=== PATIENT | female | born 1950 | race Caucasian/White ===

== ENCOUNTER → 2019-08-01 10:59 | Outpatient (BNVA) | payer MEDICARE, BC, SELFPAY | PROVIDERS: Family Provider Family Medicine; PCP Family Medicine; Visit Provider Specialist | DX: G40.309 Generalized idiopathic epilepsy and epileptic syndromes, not intractable, without status epilepticus (principal) | CPT/HCPCS: 99214 ==

== ENCOUNTER → 2020-01-31 10:52 | Outpatient (BNVA) | payer MEDICARE, BC, SELFPAY | PROVIDERS: Family Provider Family Medicine; PCP Family Medicine; Visit Provider Specialist | DX: G40.309 Generalized idiopathic epilepsy and epileptic syndromes, not intractable, without status epilepticus (principal) | CPT/HCPCS: 99213 ==

== ENCOUNTER → 2020-08-21 11:08 | Outpatient (BNVA) | payer MEDICARE, BC, SELFPAY | PROVIDERS: PCP Family Medicine; Visit Provider Specialist | DX: G40.209 Localization-related (focal) (partial) symptomatic epilepsy and epileptic syndromes with complex partial seizures, not intractable, without status epilepticus (principal) | CPT/HCPCS: 99213 ==

== ENCOUNTER 2020-08-27 16:42 | Emergency (ER) | payer MEDICARE, BC, SELFPAY ==
[2020-08-27 16:59] VITALS: BP 158/87; PULSE 75; RESP 16; TEMP 36.6; O2SAT 94; BMI 25.0
[2020-08-27 20:32] VITALS: BP 154/80; PULSE 67; RESP 16; O2SAT 96
--- NOTE | 2020-08-27 20:44 | W.ED.WOUNDLC ---
HPI - Wound/Laceration General: Chief Complaint: Wound/Laceration Stated Complaint: ABSCESS ON ABDOMEN/SENT BY PCP Time Seen by Provider: 08/27/20 20:44 History of Present Illness: HPI narrative: Patient is a 70-year-old female who comes to the ED with abscess on abdomen. Patient was seen by her PCP earlier today and was sent to the ED for further evaluation. Patient says draining wound started approximately 3 days ago. The area that is now opened up and draining is an old NG feeding tube site. Patient says her G-tube was removed over a year ago and has completely healed over but there is always been a bump on her abdomen at that site. 3 days ago it started getting red and sore. In the last 24 hours the area opened up and started leaking some purulent drainage. Patient denies any fever, chills, pain at site, nausea/vomiting, bladder or bowel symptoms. Associated symptoms: Denies chills, fever(s), nausea or vomiting Review of Systems Const: Denies: fever(s), chills or fatigue Eyes: Denies: change in vision or eye discomfort ENMT: Denies: throat pain, odynophagia, nasal discharge or nasal congestion Card: Denies: chest pain, palpitations, edema, swelling of feet/ankles, dyspnea on exertion or orthopnea Resp: Denies: dyspnea, productive cough or non-productive cough GI: Denies: abdominal pain, nausea, vomiting, diarrhea, constipation or hematochezia : Denies: flank pain, dysuria or hematuria Musc: Denies: neck pain, back pain or extremity swelling Skin/Breast: Reports: new lesions (past G tube feeding site-has opened up and has purulent drainage.); Denies: rash Neuro: Denies: headache(s), numbness in extremities or weakness in extremities PFSH ED PFSH: Family History Denies family history of Diabetes CAD (coronary artery disease) Cancer Hypertension Stroke Social History Smoking and tobacco status: never smoked Alcohol intake: never History of recent travel: No Physical Exam Const: COMMON NORMALS: no acute distress, patient oriented x3 and alert GENERAL APPEARANCE: cooperative and comfortable HENMT: COMMON NORMALS: normocephalic HEAD & SCALP: normocephalic MOUTH: Normal oral and palatal mucosa present THROAT: posterior oropharynx normal and uvula midline Neck/C-Spine: COMMON NORMALS: supple GENERAL: Yes normal visual inspection Resp: COMMON NORMALS: normal respiratory effort, No retractions, No use of accessory muscles and clear to auscultation bilaterally AUSCULTATION: clear to auscultation bilaterally Cardio: COMMON NORMALS: regular rate, regular rhythm, S1 normal heart sound present, S2 normal heart sound present, No gallops present (Cardio), No clicks present (Cardio), No murmurs present (Cardio) and Peripheral pulses 2+ throughout RATE: regular rate RHYTHM: regular rhythm HEART SOUNDS: S1 normal heart sound present and S2 normal heart sound present PERIPHERAL PULSES: Peripheral pulses 2+ throughout GI: COMMON NORMALS: Normal to inspection, nondistended, normoactive bowel sounds present, Soft to palpation, non-tender and no masses INSPECTION: Yes scar (Ostomy site closed and healed over in the left lower quadrant of abdomen.) PALPATION: Yes Soft to palpation OTHER: Patient's old G tube site has opened and has purulent drainage. Erythema and warmth present as well. : COMMON NORMALS: Yes no CVA tenderness BLADDER/KIDNEY EXAM: Yes no CVA tenderness Back/Pelvis: COMMON NORMALS: no CVA tenderness Extremity: COMMON NORMALS: normal to inspection Neuro: COMMON NORMALS: patient oriented x3 and moves all extremities SENSORIUM/ORIENTATION: Yes alert Skin: GENERAL SKIN EXAM: dry skin Course Consultations: Consultation #1: Contacted Dr. Malloy told him about patient case and the CT findings. He told me to have patient referred to surgery for outpatient evaluation. Time: 22:32 Vital Signs: Vital signs: Vital Signs Temperature 97.8 F 08/27/20 16:59 Pulse Rate 59 L 08/27/20 23:10 Respiratory Rate 16 08/27/20 23:10 Blood Pressure 151/70 08/27/20 23:10 Pulse Oximetry 98 08/27/20 23:10 MDM - Wound/Laceration MDM Narrative: Medical decision making narrative: Patient is a 70-year-old female comes to the ED with opened up old G-tube site with purulent drainage. Patient had GJ tube placed approximately 2 years ago and has had the G-tube removed over a year ago. She states it has since healed over and it was not until about 3 days ago it started getting red and opened up and started draining. Exam shows some open wound with some active purulent drainage in the left upper quadrant of abdomen. There is some surrounding erythema and warmth as well. Exam findings suggestive of cellulitis. All labs normal. CT of abdomen showed fluid-filled tract between the stomach and skin which is likely from a previous gastrostomy tube. No abscess seen. I contacted Dr. Malloy and told him about patient case and CT findings. He recommended that patient will need outpatient surgery to address wound and drainage. I placed an order with case management for patient to be referred to general surgeon. Patient was given IV fluids and Rocephin while here in the ED. Patient was diagnosed with cellulitis and drainage at gastrostomy tube site. She was put on a prescription of Bactrim as well. I told patient that rn field case manager will contact you in the next several days to set up an appointment to see general surgery to get problem addressed. Return to ED precautions given. Patient understood and agreed with plan. Lab Data: Attestation: I reviewed the patient's lab results. Labs: Lab Results 08/27/20 08/27/20 Range/Units 21:05 21:05 WBC 8.9 (4.0-10.0) 10^3/ uL RBC 4.72 (4.1-5.3) 10^6/u L Hgb 14.1 (11.5-15.3) g/dL Hct 43.6 (37.0-47.0) % MCV 92.4 (81-99) fL MCH 29.9 (28.0-34.0) pg MCHC 32.3 (30.0-36.0) g/dL RDW 13.5 (12.1-15.1) % Plt Count 288 (130-400) 10^3/c mm MPV 10.5 H (7.4-10.4) fL Neut % (Auto) 65.7 % Lymph % (Auto) 22.2 % [place] % (Auto) 9.5 % Eos % (Auto) 1.6 % Baso % (Auto) 0.8 % Neut # (Auto) 5.86 (1.8-7.7) 10^3/u L Lymph # (Auto) 2.0 (0.8-4.8) 10^3/u L [place] # (Auto) 0.9 (0.2-0.9) 10^3/u L Eos # (Auto) 0.1 (0.0-0.8) 10^3/u L Baso # (Auto) 0.1 (0.0-0.1) 10^3/u L Nucleated RBC % (a uto) 0 % Nucleated RBCs # 0.0 /100WBC Sodium 140 (136-145) mmol/L Potassium 3.8 (3.5-5.1) mmol/L Chloride 101 (98-107) mmol/L Carbon Dioxide 28 (22-29) mmol/L Anion Gap 14.8 (5-19) BUN 17 (8-23) mg/dL Creatinine 0.8 (0.5-0.9) mg/dL GFR Calculation Not Reportable Glucose 96 (65-115) mg/dL Calculated Osmolal ity 291 (285-295) mOsm/k g Calcium 9.8 (8.5-10.5) mg/dL Total Bilirubin 0.3 (0.15-1.2) mg/dL AST 25 (0-32) U/L ALT 16 (0-33) U/L Alkaline Phosphata se 135 H (35-105) IU/L Total Protein 7.3 (6.6-8.7) g/dL Albumin 4.5 (3.5-5.2) g/dL Globulin 2.8 (1.3-4.6) g/dL Imaging Data^: CT Abd/Pel: Attestation: I personally reviewed and interpreted this imaging study as follows: Radiologist's impression: [address] [address] [address] Scan Report Signed Patient: Elaina Michaels AUnolivia #: [id number] : 1950Acct#:[id number] Age/Sex: 70 / FADM Date: 08/27/20 Loc: ERRoom/Bed: Attending Dr: Ordering Provider/Ordering MD: Dariel Delacruz Date of Service: 08/27/20 Procedure(s): CT abdomen pelvis w con* [id number] Accession Number(s): [id number] Report Number: [id number] PROCEDURE INFORMATION: Exam: CT Abdomen And Pelvis With Contrast Exam date and time: 08/27/2020 9:36 PM Age: 70 years old Clinical indication: Other: Draining at old feeding tube site; Prior surgery; Surgery type: Left hip, feeding tube(removed 1 yr ago); Additional info: Wound with purulent drainage on abdomen. TECHNIQUE: Imaging protocol: Computed tomography of the abdomen and pelvis with contrast. Radiation optimization: All CT scans at this facility use at least one of these dose optimization techniques: automated exposure control; mA and/or kV adjustment per patient size (includes targeted exams where dose is matched to clinical indication); or iterative reconstruction. Contrast material: VISI 320; Contrast volume: 95 ml; Contrast route: INTRAVENOUS (IV); COMPARISON: CT pelvis w con* [id number] 03/11/2018 1:33 AM, report only chest CT from 06/30/2018. RADIATION DOSE METRICS: Total DLP (mGy-cm): 1457.97 FINDINGS: Lungs: Scattered scars in the lung bases. Liver: Incidental 1.2 cm simple cyst in the left lobe of the liver. Gallbladder and bile ducts: Normal. No calcified stones. No ductal dilation. Pancreas: Normal. No ductal dilation. Spleen: Normal. No splenomegaly. Adrenal glands: Normal. No mass. Kidneys and ureters: Chronic 5.9 cm simple left renal cyst. Stomach and bowel: In the left upper quadrant there is a tract extending from the stomach to the skin surface. There is no gas in this tract but there is likely a small quantity of fluid. This may have been the site of a previously removed gastrostomy tube. There is no abscess. Patent anastomosis in the distal descending colon. Appendix: No evidence of appendicitis. Intraperitoneal space: Unremarkable. No free air. No significant fluid collection. Vasculature: Unremarkable. No abdominal aortic aneurysm. Lymph nodes: Unremarkable. No enlarged lymph nodes. Urinary bladder: Unremarkable as visualized. Reproductive: The uterus is atrophic. Bones/joints: Chronic T10 compression fracture was also reported in 2019. Multiple chronic healed left lateral rib fractures. Left hip arthroplasty. Soft tissues: Additional scar in the left mid abdominal wall. No visible fluid or inflammation in the scar. Bulge in the supraumbilical abdominal wall has a broad aperture up to 8 cm. No bowel entrapment. CT/CT abdomen pelvis w con* [id number] IMPRESSION: 1. Fluid-filled tract between the stomach and skin. This is likely the site of a previous gastrostomy tube. There is no abscess. 2. Other chronic and incidental findings as described. Radiation Dose CTDIVOL = (mGy): DLP = 1457.97 (mGy-cm) Dictated By:Huong Anand MD Signed By:Huong Anandigned Date/Time:08/27/202206 DD/ 05 Discharge Plan Discharge Patient Disposition: Home Clinical Impression: Cellulitis at gastrostomy tube site, Drainage from gastrostomy tube site Condition: Stable Prescriptions: New sulfamethoxazole-trimethoprim 800-160 mg tablet 1 tab PO BID 7 Days Qty: 14 RF: 0 No Action levothyroxine 50 mcg capsule 50 mcg PO DAILY RF: 0 pantoprazole [Protonix] 40 mg tablet,delayed release (DR/EC) 40 mg PO DAILY RF: 0 paroxetine HCl [Paxil] 30 mg tablet 60 mg PO DAILY RF: 0 multivitamin Capsule 1 cap PO DAILY RF: 0 omega-3 fatty acids [Fish Oil Concentrate] 1,000 mg capsule 1,000 mg PO DAILY RF: 0 Prolia 60 mg/mL syringe SUBCUT .every 6 month RF: 0 donepezil [Aricept] 10 mg tablet 10 mg PO DAILY Qty: 90 RF: 3 Vimpat 200 mg tablet 200 mg PO DAILY Qty: 30 RF: 5 levetiracetam [Keppra] 500 mg tablet 500 mg PO BID Qty: 180 RF: 3 quetiapine 25 mg tablet See Rx Instructions .ROUTE .COMPLEX Qty: 120 RF: 3 Discharge Orders: Discharge ED (Routine); Ordered 08/27/20 Ordered By: Dariel Delacruz Referrals: Jackeline Elmore DO [Primary Care Provider] - Discharge Diet: Regular Discharge Activity: Resume usual activity Activity Restrictions/Additional Instructions: Follow-up with medical provider as directed. Case management will be contacting you in the next several days to set up an appointment with general surgery. Take full course of antibiotic as prescribed. Keep wound site covered in bandaged. return to the ER or your medical provider if condition worsens. Please read and understand discharge instructions. If any questions, please ask. Coding Level of Care Code ED Front End Mechanic for Mayrag Fwd Exam Comprehensive
--- NOTE | 2020-08-27 21:08 | CTR_ITS ---
PROCEDURE INFORMATION: Exam: CT Abdomen And Pelvis With Contrast Exam date and time: 08/27/2020 9:36 PM Age: 70 years old Clinical indication: Other: Draining at old feeding tube site; Prior surgery; Surgery type: Left hip, feeding tube(removed 1 yr ago); Additional info: Wound with purulent drainage on abdomen. TECHNIQUE: Imaging protocol: Computed tomography of the abdomen and pelvis with contrast. Radiation optimization: All CT scans at this facility use at least one of these dose optimization techniques: automated exposure control; mA and/or kV adjustment per patient size (includes targeted exams where dose is matched to clinical indication); or iterative reconstruction. Contrast material: VISI 320; Contrast volume: 95 ml; Contrast route: INTRAVENOUS (IV); COMPARISON: CT pelvis w con* [id number] 03/11/2018 1:33 AM, report only chest CT from 06/30/2018. RADIATION DOSE METRICS: Total DLP (mGy-cm): 1457.97 FINDINGS: Lungs: Scattered scars in the lung bases. Liver: Incidental 1.2 cm simple cyst in the left lobe of the liver. Gallbladder and bile ducts: Normal. No calcified stones. No ductal dilation. Pancreas: Normal. No ductal dilation. Spleen: Normal. No splenomegaly. Adrenal glands: Normal. No mass. Kidneys and ureters: Chronic 5.9 cm simple left renal cyst. Stomach and bowel: In the left upper quadrant there is a tract extending from the stomach to the skin surface. There is no gas in this tract but there is likely a small quantity of fluid. This may have been the site of a previously removed gastrostomy tube. There is no abscess. Patent anastomosis in the distal descending colon. Appendix: No evidence of appendicitis. Intraperitoneal space: Unremarkable. No free air. No significant fluid collection. Vasculature: Unremarkable. No abdominal aortic aneurysm. Lymph nodes: Unremarkable. No enlarged lymph nodes. Urinary bladder: Unremarkable as visualized. Reproductive: The uterus is atrophic. Bones/joints: Chronic T10 compression fracture was also reported in 2019. Multiple chronic healed left lateral rib fractures. Left hip arthroplasty. Soft tissues: Additional scar in the left mid abdominal wall. No visible fluid or inflammation in the scar. Bulge in the supraumbilical abdominal wall has a broad aperture up to 8 cm. No bowel entrapment. CT/CT abdomen pelvis w con* [id number] IMPRESSION: 1. Fluid-filled tract between the stomach and skin. This is likely the site of a previous gastrostomy tube. There is no abscess. 2. Other chronic and incidental findings as described. Radiation Dose CTDIVOL = (mGy): DLP = 1457.97 (mGy-cm)
[2020-08-27 21:13] LABS: Basophils # 0.1 10^3/uL (0.0-0.1); Basophils % 0.8 %; Eosinophils # 0.1 10^3/uL (0.0-0.8); Eosinophils % 1.6 %; Hematocrit 43.6 % (37.0-47.0); Hemoglobin 14.1 g/dL (11.5-15.3); Lymphocytes % 22.2 %; Mean Corpuscular HGB Conc 32.3 g/dL (30.0-36.0); Mean Corpuscular Hemoglobin 29.9 pg (28.0-34.0); Mean Corpuscular Volume 92.4 fL (81-99); Mean Platelet Volume 10.5 fL (7.4-10.4); Monocytes # 0.9 10^3/uL (0.2-0.9); Monocytes % 9.5 %; Neutrophils # 5.86 10^3/uL (1.8-7.7); Neutrophils % 65.7 %; Nucleated Red Blood Cells % 0 %; Platelet Count 288 10^3/cmm (130-400); Red Blood Count 4.72 10^6/uL (4.1-5.3); Red Cell Distribution Width 13.5 % (12.1-15.1); White Blood Count 8.9 10^3/uL (4.0-10.0)
[2020-08-27 21:27] LABS: Alanine Aminotransferase 16 U/L (0-33); Albumin Level 4.5 g/dL (3.5-5.2); Alkaline Phosphatase 135 IU/L (35-105); Blood Urea Nitrogen 17 mg/dL (8-23); Calcium 9.8 mg/dL (8.5-10.5); Carbon Dioxide 28 mmol/L (22-29); Chloride 101 mmol/L (98-107); Creatinine Clr Calc Pharmacy 67.1929; Globulin 2.8 g/dL (1.3-4.6); Glucose 96 mg/dL (65-115); Osmolality Calculated 291 mOsm/kg (285-295); Sodium 140 mmol/L (136-145); Total Bilirubin 0.3 mg/dL (0.15-1.2); Total Protein 7.3 g/dL (6.6-8.7)
[2020-08-27 21:35] LABS: Anion Gap 14.8 (5-19); Aspartate Amino Transferase 25 U/L (0-32); Potassium 3.8 mmol/L (3.5-5.1)
[2020-08-27] MEDS: iodixanol 320 mg/mL 100mL Btl IV (21:45)
[2020-08-27 22:00] VITALS: BP 146/78; PULSE 72; RESP 17; O2SAT 97
[2020-08-27] MEDS: sodium chloride 0.9% 500 ML 999 ML IV (22:00)
[2020-08-27] MEDS: cefTRIAXone 2,000 MG in sodium chloride 0.9% (plus) 50 ML 100 MG IV (22:03)
[2020-08-27 23:10] VITALS: BP 151/70; PULSE 59; RESP 16; O2SAT 98
--- NOTE | 2020-08-28 10:21 | DCPLANNER ---
inventory control manager received message to schedule appointment for patient with general surgery for abscess on abdomen. inventory control manager emailed Matthew to schedule appt. They will contact patient with appointment information.
--- NOTE | 2020-08-31 11:46 | DCPLANNER ---
Patient has a follow up appointment scheduled for Thursday, September 10, 2020 at 8:[address] Arceo at [facility]. Clinic will call patient with appointment information.
--- NOTE | 2020-09-19 10:31 | DCPLANNER ---
Patient had a follow up appointment scheduled for 09.10.[address] Arceo at general surgery - patient did attend appointment.
== END 2020-08-27 23:14 | disposition home or self-care (01) ==
PROVIDERS: Emergency Provider Physician Assistant; PCP Family Medicine
DX: L03.311 Cellulitis of abdominal wall (principal)
CPT/HCPCS: 74177; 80053; 85025; 87070; 87075; 87205; 96365; 99283; J0696; J7040; Q9967

== ENCOUNTER → 2021-03-19 13:03 | Outpatient (BNVA) | payer MEDICARE, BC, SELFPAY | PROVIDERS: PCP Pathology Anatomic Pathology & Clinical Pathology; Visit Provider Specialist | DX: G40.209 Localization-related (focal) (partial) symptomatic epilepsy and epileptic syndromes with complex partial seizures, not intractable, without status epilepticus (principal); G40.309 Generalized idiopathic epilepsy and epileptic syndromes, not intractable, without status epilepticus | CPT/HCPCS: 99213; 99214 ==

== ENCOUNTER → 2021-09-17 11:06 | Outpatient (BNVA) | payer MEDICARE, BC, SELFPAY | PROVIDERS: PCP Pathology Anatomic Pathology & Clinical Pathology; Visit Provider Specialist | DX: G40.209 Localization-related (focal) (partial) symptomatic epilepsy and epileptic syndromes with complex partial seizures, not intractable, without status epilepticus (principal); G40.409 Other generalized epilepsy and epileptic syndromes, not intractable, without status epilepticus | CPT/HCPCS: 99213 ==

== ENCOUNTER → 2022-03-19 12:58 | Outpatient (BNVA) | payer MEDICARE, BC, SELFPAY | PROVIDERS: PCP Pathology Anatomic Pathology & Clinical Pathology; Visit Provider Specialist | DX: G40.209 Localization-related (focal) (partial) symptomatic epilepsy and epileptic syndromes with complex partial seizures, not intractable, without status epilepticus (principal); G40.409 Other generalized epilepsy and epileptic syndromes, not intractable, without status epilepticus | CPT/HCPCS: 99214 ==

== ENCOUNTER 2022-07-23 11:37 | Outpatient (CLI) | payer MEDICARE, BC, SELFPAY ==
[2022-07-24 08:20] LABS: Levetiracetam Immunoassy 42.5 mcg/mL (6.0-46.0)
== END 2022-07-23 11:38 | disposition home or self-care (01) ==
PROVIDERS: PCP Pathology Anatomic Pathology & Clinical Pathology; Visit Provider Pathology Anatomic Pathology & Clinical Pathology
DX: Z01.89 Encounter for other specified special examinations (principal)
CPT/HCPCS: 80177

== ENCOUNTER → 2022-07-25 09:30 | Outpatient (BNVA) | payer MEDICARE, BC, SELFPAY | PROVIDERS: PCP Pathology Anatomic Pathology & Clinical Pathology; Visit Provider Specialist | DX: G40.209 Localization-related (focal) (partial) symptomatic epilepsy and epileptic syndromes with complex partial seizures, not intractable, without status epilepticus (principal); G40.409 Other generalized epilepsy and epileptic syndromes, not intractable, without status epilepticus; Z79.899 Other long term (current) drug therapy | CPT/HCPCS: 99215 ==

== ENCOUNTER 2022-11-24 15:37 | Outpatient (CLI) | payer MEDICARE, BC, SELFPAY ==
[2022-11-24 16:40] LABS: Anion Gap 10.8 (5-19); Blood Urea Nitrogen 21 mg/dL (8-23); Calcium 9.2 mg/dL (8.5-10.5); Carbon Dioxide 30 mmol/L (22-29); Chloride 102 mmol/L (98-107); Glucose 78 mg/dL (65-115); Osmolality Calculated 290 mOsm/kg (285-295); Potassium 3.8 mmol/L (3.5-5.1); Sodium 139 mmol/L (136-145)
== END 2022-11-24 15:38 | disposition home or self-care (01) ==
LOC: LAB 15:38
PROVIDERS: PCP Pathology Anatomic Pathology & Clinical Pathology; Visit Provider Family Medicine
DX: Z01.89 Encounter for other specified special examinations (principal)
CPT/HCPCS: 80048

== ENCOUNTER 2022-12-08 14:44 | Outpatient (CLI) | payer MEDICARE, BC, SELFPAY ==
[2022-12-08 14:58] LABS: Basophils # 0.1 10^3/uL (0.0-0.1); Basophils % 0.8 %; Eosinophils # 0.2 10^3/uL (0.0-0.8); Eosinophils % 2.3 %; Hematocrit 36.4 % (37.0-47.0); Hemoglobin 11.4 g/dL (11.5-15.3); Lymphocytes # 1.7 10^3/uL (0.8-4.8); Lymphocytes % 21.5 %; Mean Corpuscular HGB Conc 31.3 g/dL (30.0-36.0); Mean Corpuscular Hemoglobin 29.9 pg (28.0-34.0); Mean Corpuscular Volume 95.5 fl (81-99); Mean Platelet Volume 10.2 fL (7.4-10.4); Monocytes # 0.9 10^3/uL (0.2-0.9); Monocytes % 11.1 %; Neutrophils # 5.05 10^3/uL (1.8-7.7); Neutrophils % 63.9 %; Nucleated Red Blood Cells % 0 %; Platelet Count 227 10^3/cmm (130-400); Red Blood Count 3.81 10^6/uL (4.1-5.3); Red Cell Distribution Width 13.2 % (12.1-15.1); White Blood Count 7.9 10^3/uL (4.0-10.0)
[2022-12-08 15:21] LABS: Alanine Aminotransferase 14 U/L (0-33); Alkaline Phosphatase 81 U/L (35-105); Anion Gap 14.8 (5-19); Aspartate Amino Transferase 26 U/L (0-32); Blood Urea Nitrogen 21 mg/dL (8-23); Calcium 9.8 mg/dL (8.5-10.5); Carbon Dioxide 28 mmol/L (22-29); Chloride 100 mmol/L (98-107); Globulin 1.9 g/dL (1.3-4.6); Glucose 94 mg/dL (65-115); Osmolality Calculated 291 mOsm/kg (285-295); Potassium 3.8 mmol/L (3.5-5.1); Sodium 139 mmol/L (136-145); Total Bilirubin 0.3 mg/dL (0.15-1.2); Total Protein 5.9 g/dL (6.6-8.7)
== END 2022-12-08 14:45 | disposition home or self-care (01) ==
PROVIDERS: PCP Pathology Anatomic Pathology & Clinical Pathology; Visit Provider Family Medicine
DX: Z01.89 Encounter for other specified special examinations (principal)
CPT/HCPCS: 80053; 85025

== ENCOUNTER 2022-12-09 12:40 | Emergency (ER) | payer MEDICARE, BC, SELFPAY ==
--- NOTE | 2022-12-09 12:46 | XR_ITS ---
WS: [id number] Exam: XR knee LT 3V* [id number] Date/Time of Exam: 12/09/2022 1:02 PM Reason For Exam: injury There are comminuted fractures of the medial and lateral tibial plateaus. Slight depression of the la teral plateau. Hemarthrosis. The distal femur is intact. XR/XR knee LT 3V* [id number] IMPRESSION: 1. Comminuted fractures of the medial and lateral tibial plateaus and probable hemarthrosis. Further workup with CT recommended.
[2022-12-09 12:52] VITALS: BP 141/67; PULSE 64; TEMP 37.3; O2SAT 100; BMI 21.9
--- NOTE | 2022-12-09 13:11 | W.ED.EXTPRO ---
HPI - Extremity Problem General: Chief complaint: Extremity Injury, Lower Stated complaint: knee pain Time Seen by Provider: 12/09/22 12:43 Source: patient and EMS Mode of arrival: EMS Limitations: no limitations History of Present Illness: 72-year-old female who [facility] she had recent falls 1 to 2 days ago that had an x-ray that was read today as a tibial plateau fracture they do not have a knee immobilizer at the jail was seen here she does complain of left knee pain she denies any hip pain denies any pain elsewhere denies any headache or loss of consciousness. Associated symptoms: Deny chest pain, fever(s) or rash Review of Systems Const: Denies: fever(s), chills, body aches or change in appetite ENMT: Denies: throat pain or dental pain Card: Denies: chest pain Resp: Denies: dyspnea GI: Denies: abdominal pain, nausea, vomiting or diarrhea Musc: Reports: extremity pain; Denies: neck pain or back pain Skin/Breast: Denies: rash Neuro: Denies: headache(s) PFSH ED PFSH: Family History Denies family history of Diabetes CAD (coronary artery disease) Cancer Hypertension Stroke Social History Smoking and tobacco status: never smoked Alcohol intake: never Substance/Drug Use: never Physical Exam Const: COMMON NORMALS: no acute distress, patient oriented x3 and healthy appearing HENMT: COMMON NORMALS: normocephalic and atraumatic HEAD & SCALP: normocephalic and atraumatic Eye: COMMON NORMALS: Equal, round and reactive pupils present PUPIL: Yes Equal, round and reactive pupils present Neck/C-Spine: COMMON NORMALS: full ROM and supple CERVICAL SPINE: No Cervical spine tenderness Chest: COMMONS NORMALS: normal inspection of the chest and normal palpation of entire chest wall Resp: COMMON NORMALS: normal respiratory effort, No retractions, No use of accessory muscles and clear to auscultation bilaterally AUSCULTATION: clear to auscultation bilaterally Cardio: COMMON NORMALS: regular rate, regular rhythm and No murmurs present (Cardio) RATE: regular rate RHYTHM: regular rhythm GI: COMMON NORMALS: Normal to inspection, nondistended, normoactive bowel sounds present, Soft to palpation, non-tender and no masses PALPATION: Yes Soft to palpation Extremity: NARRATIVE EXTREMITY EXAM: tenderness to left knee Neuro: COMMON NORMALS: patient oriented x3, moves all extremities and no focal motor deficits Psych: COMMON NORMALS: mental status grossly normal, Normal thought process present and cooperative THOUGHT PROCESS: Normal thought process present Skin: COMMON NORMALS: no rashes or lesions noted and no wounds GENERAL SKIN EXAM: no rashes or lesions noted Course Vital Signs: Vital signs: Vital Signs Temperature 99.1 F 12/09/22 12:52 Pulse Rate 64 12/09/22 12:52 Blood Pressure 141/67 12/09/22 12:52 Pulse Oximetry 100 12/09/22 12:52 Oxygen Delivery Me thod Room Air 12/09/22 12:52 MDM - Extremity (Nontraumatic) Medical Decision Making Patient presents here with a tibial plateau fracture to the left knee seen on x-ray. Did speak to the orthopedic doctor by an we will get a CT of the knee placed immobilizer and discharged back to jail she is to follow-up with him and be nonweightbearing. Medical Records I reviewed the patient's medical records. Lab Data I reviewed the patient's lab results. Radiology Impressions Knee X-Ray 12/09/22 12:46 IMPRESSION: 1. Comminuted fractures of the medial and lateral tibial plateaus and probable hemarthrosis. Further workup with CT recommended. Discharge Plan Discharge Patient Disposition: Home Clinical Impression: Closed fracture of left tibial plateau Condition: Stable Prescriptions: No Action levothyroxine 50 mcg capsule 50 mcg PO DAILY pantoprazole [Protonix] 40 mg tablet,delayed release (DR/EC) 40 mg PO DAILY paroxetine HCl [Paxil] 30 mg tablet 60 mg PO DAILY multivitamin Capsule 1 cap PO DAILY omega-3 fatty acids [Fish Oil Concentrate] 1,000 mg capsule 1,000 mg PO DAILY Prolia 60 mg/mL syringe SUBCUT .every 6 month quetiapine 25 mg tablet See Rx Instructions .ROUTE .COMPLEX Qty: 120 3RF Dose Instruction: Take 2 tablets by mouth twice daily Rx Instructions: Take 2 tablets by mouth twice daily donepezil 10 mg tablet See Rx Instructions .ROUTE .COMPLEX Qty: 30 4RF Dose Instruction: Take 1 tablet by mouth once daily Rx Instructions: Take 1 tablet by mouth once daily levetiracetam [Keppra] 1,000 mg tablet 1,000 mg PO BID Qty: 60 3RF lacosamide 200 mg tablet 200 mg PO BID 90 Days Qty: 180 5RF Rx Instructions: Take 1 tab in the morning and 1 tab in the evening Discharge Orders: Discharge ED (Routine); Ordered 12/09/22 Ordered By: James Oliver Referrals: Gumaro Delacruz DO [Physician] - 1-3 days Duong Ríos MD [Primary Care Provider] - Discharge Diet: Advance as tolerated Discharge Activity: Limit activity as instructed and Use walker/crutches as instructed Patient Instructions: Leg Fracture (ED) Coding Level of Care Code ED Delivery Director for Soniya Connelly
--- NOTE | 2022-12-09 13:45 | CT_ITS ---
WS: [id number] CT KNEE, NONCONTRAST HISTORY: injury Technique: All CT scans at [facility] use at least one of these dose optimization techniques: automated exposure control; mA and/or kV adjustment per patient size (includes targeted exams where dose is matched to clinical indication); or iterative reconstruction. DLP: 349.06 mGy.cm COMPARISON: Radiographs 12/09/2022 Slightly comminuted mildly depressed fracture involving the lateral tibial plateau. Fracture extends across the base of the tibial spines to the medial tibial plateau. Fracture extends predominantly thr ough the posterior aspect of the tibial plateau Patella is normally positioned. Proximal fibula is intact. There is a large hemarthrosis. Large amount soft tissue edema surrounding the lateral knee and fibula r head. CT/CT knee LT wo con* [id number] IMPRESSION: 1. Minimally depressed and comminuted tibial plateau fracture. Fracture predom inantly involves the lateral and posterior tibial plateau with mild extension t hrough the tibial spines to the medial tibial plateau. 2. Large hemarthrosis.
--- NOTE | 2022-12-09 14:16 | PC.NURSE ---
[facility] REPORT GIVEN.
--- NOTE | 2022-12-09 14:40 | PC.NURSE ---
PT REFUSED CRUTCHES STATING, I WONT USE THOSE .
[2022-12-09 14:41] VITALS: BP 155/73; PULSE 83; RESP 16; O2SAT 96
--- NOTE | 2022-12-09 14:42 | PC.NURSE ---
UPON DC PT DENIES ANY LOSS OF SENSATION OR FUNCTION DISTAL TO KNEE IMMOBILZER APPLICATION.
--- NOTE | 2022-12-09 14:49 | PC.SOCIAL ---
Addendum entered by Yashira Espinosa 12/24/22 10:55: Patient had a follow up appointment scheduled with ortho - patient did attend appointment. Original Note: Ortho Referral Referral sent to ortho at this time. Clinic to contact patient with appt date/time.
== END 2022-12-09 14:42 | disposition home or self-care (01) ==
PROVIDERS: Emergency Provider Emergency Medicine; PCP Pathology Anatomic Pathology & Clinical Pathology
DX: S82.142A Displaced bicondylar fracture of left tibia, initial encounter for closed fracture (principal); W19.XXXA Unspecified fall, initial encounter; Y92.129 Unspecified place in nursing home as the place of occurrence of the external cause
CPT/HCPCS: 29530; 73562; 73700; 99284

== ENCOUNTER → 2022-12-15 09:30 | Outpatient (BNVA) | payer MEDICARE, BC, SELFPAY | PROVIDERS: PCP Pathology Anatomic Pathology & Clinical Pathology; Visit Provider Nurse Practitioner Family | DX: S82.142A Displaced bicondylar fracture of left tibia, initial encounter for closed fracture (principal); W19.XXXA Unspecified fall, initial encounter | CPT/HCPCS: 73562; 99214 ==

== ENCOUNTER → 2023-01-13 10:26 | Outpatient (BNVA) | payer MEDICARE, BC, SELFPAY | PROVIDERS: PCP Pathology Anatomic Pathology & Clinical Pathology; Visit Provider Nurse Practitioner Family | DX: S82.142A Displaced bicondylar fracture of left tibia, initial encounter for closed fracture (principal); W19.XXXA Unspecified fall, initial encounter; Y92.019 Unspecified place in single-family (private) house as the place of occurrence of the external cause | CPT/HCPCS: 73562; 99214 ==

== ENCOUNTER → 2023-01-27 11:01 | Outpatient (BNVA) | payer MEDICARE, BC, SELFPAY | PROVIDERS: PCP Pathology Anatomic Pathology & Clinical Pathology; Visit Provider Specialist | DX: G40.209 Localization-related (focal) (partial) symptomatic epilepsy and epileptic syndromes with complex partial seizures, not intractable, without status epilepticus (principal); G40.409 Other generalized epilepsy and epileptic syndromes, not intractable, without status epilepticus | CPT/HCPCS: 99214 ==

== ENCOUNTER → 2023-02-17 09:52 | Outpatient (BNVA) | payer MEDICARE, BC, SELFPAY | PROVIDERS: PCP Pathology Anatomic Pathology & Clinical Pathology; Visit Provider Nurse Practitioner Family | DX: S82.142A Displaced bicondylar fracture of left tibia, initial encounter for closed fracture; W19.XXXA Unspecified fall, initial encounter; Y92.019 Unspecified place in single-family (private) house as the place of occurrence of the external cause | CPT/HCPCS: 73562; 99213 ==

== ENCOUNTER → 2023-03-17 10:28 | Outpatient (BNVA) | payer MEDICARE, BC, SELFPAY | PROVIDERS: PCP Pathology Anatomic Pathology & Clinical Pathology; Visit Provider Physician Assistant | DX: S82.142A Displaced bicondylar fracture of left tibia, initial encounter for closed fracture; W19.XXXA Unspecified fall, initial encounter | CPT/HCPCS: 73562; 99213 ==

== ENCOUNTER → 2023-04-21 13:43 | Outpatient (BNVA) | payer MEDICARE, BC, SELFPAY | PROVIDERS: PCP Pathology Anatomic Pathology & Clinical Pathology; Visit Provider Physician Assistant | DX: S82.142A Displaced bicondylar fracture of left tibia, initial encounter for closed fracture (principal); W19.XXXA Unspecified fall, initial encounter | CPT/HCPCS: 73560; 73565; 99213 ==

== ENCOUNTER → 2023-07-14 11:45 | Outpatient (BNVA) | payer MEDICARE, BC, SELFPAY | PROVIDERS: PCP Pathology Anatomic Pathology & Clinical Pathology; Visit Provider Physician Assistant | DX: S82.142A Displaced bicondylar fracture of left tibia, initial encounter for closed fracture (principal); X58.XXXA Exposure to other specified factors, initial encounter | CPT/HCPCS: 73562; 99213 ==

== ENCOUNTER 2023-11-11 16:26 | Emergency (ER) | payer MEDICARE, BC, SELFPAY ==
[2023-11-11 16:29] VITALS: BP 170/77; PULSE 64; RESP 18; TEMP 36.8; O2SAT 100
--- NOTE | 2023-11-11 16:32 | XRR_ITS ---
PROCEDURE INFORMATION: Exam: XR Chest Exam date and time: 11/11/2023 4:35 PM Age: 73 years old Clinical indication: Injury or trauma; Fall; Blunt trauma (contusions or hematomas) TECHNIQUE: Imaging protocol: Radiologic exam of the chest. Views: 1 view. COMPARISON: CT chest w con* [id number] 06/30/2018 7:36 PM FINDINGS: Lungs: No focal consolidation. Pleural spaces: Acute right-sided pneumothorax (small-moderate, approximately 15 -20 %) No evidence of pleural effusion. Heart/Mediastinum: Cardiomediastinal silhouette is within normal limits. Bones/joints: Suspected displaced fractures of the right lateral 9th and 10th ribs. Old left-sided rib fractures. XR/XR chest 1V portable [id number] IMPRESSION: 1. Small-moderate right-sided pneumothorax. 2.Suspected displaced fractures of the right lateral 9th and 10th ribs. Correlation with CT is recommended.
--- NOTE | 2023-11-11 16:32 | CTR_ITS ---
PROCEDURE INFORMATION: Exam: CT Head Without Contrast Exam date and time: 11/11/2023 5:49 PM Age: 73 years old Clinical indication: Injury or trauma; Fall; Blunt trauma (contusions or hematomas) TECHNIQUE: Imaging protocol: Computed tomography of the head without contrast. Radiation optimization: All CT scans at this facility use at least one of these dose optimization techniques: automated exposure control; mA and/or kV adjustment per patient size (includes targeted exams where dose is matched to clinical indication); or iterative reconstruction. COMPARISON: CT head wo con* [id number] 03/07/2018 1:03 AM RADIATION DOSE METRICS: Total DLP (mGy-cm): 1205 FINDINGS: Brain: No evidence of intra-axial or extra-axial hemorrhage. No mass effect or midline shift. Chronic basal ganglia lacunar infarcts versus dilated perivascular spaces. Morales-white differentiation is otherwise maintained. There is moderate-severe cerebellar atrophy which can be seen with chronic alcohol or anticonvulsant use. Basilar cisterns are patent. Cerebral ventricles: No hydrocephalus. Paranasal sinuses: The visualized paranasal sinuses are well aerated. Mastoid air cells: The visualized mastoids and middle ears are clear. Bones: Unremarkable. No acute fracture. Soft tissues: No gross soft tissue abnormality. CT/CT head wo con* [id number] IMPRESSION: 1. No acute intracranial abnormality.
--- NOTE | 2023-11-11 16:32 | CTR_ITS ---
PROCEDURE INFORMATION: Exam: CT Chest With Contrast; Diagnostic Exam date and time: 11/11/2023 5:55 PM Age: 73 years old Clinical indication: Other: RT rib; Chest wall pain; Patient HX: Fall, right rib pain per patient TECHNIQUE: Imaging protocol: Diagnostic computed tomography of the chest with contrast. Radiation optimization: All CT scans at this facility use at least one of these dose optimization techniques: automated exposure control; mA and/or kV adjustment per patient size (includes targeted exams where dose is matched to clinical indication); or iterative reconstruction. Contrast material: OMNI 350; Contrast volume: 140 ml; Contrast route: INTRAVENOUS (IV); COMPARISON: CR XR chest 1V portable [id number] 11/11/2023 4:35 PM RADIATION DOSE METRICS: Total DLP (mGy-cm): 707.43 FINDINGS: Lungs: Basal atelectasis in the right lower lobe. There is no aortic dissection. There is no aortic aneurysm. Pleural spaces: Moderate right pneumothorax. Small right pleural effusion presumably hemothorax. Heart: There is no cardiomegaly. There is no pericardial effusion. Lymph nodes: There are no enlarged nodes. Vasculature: There is atherosclerotic disease. No pulmonary embolism. Bones/joints: Minimally displaced fractures of the right 8th through 12th ribs. On the 11th rib, there are 2 fracture locations of the neck and posterior aspect. Nondisplaced fracture of the left 8th rib in the lateral aspect (x2). There is degenerative disease of the spine. Soft tissues: Unremarkable. PROCEDURE INFORMATION: Exam: CT Abdomen And Pelvis With Contrast Exam date and time: 11/11/2023 5:55 PM Age: 73 years old Clinical indication: Other: RT rib; Chest wall pain; Patient HX: Fall, right rib pain per patient TECHNIQUE: Imaging protocol: Computed tomography of the abdomen and pelvis with contrast. Radiation optimization: All CT scans at this facility use at least one of these dose optimization techniques: automated exposure control; mA and/or kV adjustment per patient size (includes targeted exams where dose is matched to clinical indication); or iterative reconstruction. Contrast material: OMNI 350; Contrast volume: 140 ml; Contrast route: INTRAVENOUS (IV); COMPARISON: CT abdomen pelvis w con* [id number] 08/27/2020 9:58 PM RADIATION DOSE METRICS: Total DLP (mGy-cm): 707.43 FINDINGS: Pleural spaces: The right pneumothorax is again noted. Lower rib fractures again noted bilaterally. Liver: The liver is unremarkable. Stable 15 mm hypodensity in the left lobe of the liver presumably cyst. Gallbladder and bile ducts: No intrahepatic or extrahepatic biliary ductal dilatation. The gallbladder is unremarkable. Pancreas: The pancreas is unremarkable. Spleen: The spleen is unremarkable. Adrenal glands: Adrenal glands are unremarkable. Kidneys and ureters: Bilateral simple renal cysts (7 cm left renal cortical cysts) are present, as well as other subcentimeter hypodensities which are too small to characterize. No hydronephrosis or nephrolithiasis. Stomach and bowel: The stomach is not fully distended. Small and large bowel are normal in caliber without evidence of obstruction. Extensive amount of feces in the entire colon indicating constipation. In the cecum and right colon, there are solid portions to the stool, underlying lesion cannot be excluded, recommend follow-up to confirm resolution. Appendix: Normal appendix. Intraperitoneal space: No free intraperitoneal air. No fluid collection. Vasculature: There is no aortic aneurysm. Lymph nodes: Click atherosclerosis There are no enlarged nodes. Urinary bladder: No focal wall thickening of the urinary bladder. The bladder is distended with contrast. Reproductive: Uterus is unremarkable. No suspicious adnexal lesion seen. Bones/joints: Post left total hip arthroplasty, hardware is intact. Lower bilateral rib fractures are again noted. There is degenerative disease of the spine. Chronic compression fracture of the T10 vertebral body. Soft tissues: Unremarkable. CT/CT chest abdpel w/*[id number] IMPRESSION: 1. Moderate right pneumothorax with small right pleural effusion presumably a hemothorax in this setting. 2. Multiple minimally displaced right rib fractures from the 8th through the 12th ribs. 3. Nondisplaced fractures of the left 8th rib on the lateral aspect IMPRESSION: 1. Right pneumothorax and lower rib fractures are again noted. 2. Constipation with solid components noted in the right colon and cecum, recommend follow-up to exclude underlying mass. COMMENTS: Consistent with the [employer]'s Incidental Findings Committee white paper (J Am Trev Radiol 2018): Any incidental renal lesion less than 1 cm or classified as too small to characterize, or any incidental cystic renal lesion characterized as simple-appearing, is likely benign. No follow-up imaging is recommended for these lesions per consensus recommendations based on imaging criteria.
--- NOTE | 2023-11-11 16:33 | CTR_ITS ---
PROCEDURE INFORMATION: Exam: CT Cervical Spine Without Contrast Exam date and time: 11/11/2023 5:49 PM Age: 73 years old Clinical indication: Injury or trauma; Fall; Blunt trauma TECHNIQUE: Imaging protocol: Computed tomography of the cervical spine without contrast. Radiation optimization: All CT scans at this facility use at least one of these dose optimization techniques: automated exposure control; mA and/or kV adjustment per patient size (includes targeted exams where dose is matched to clinical indication); or iterative reconstruction. COMPARISON: CT head wo con* [id number] 11/11/2023 5:49 PM RADIATION DOSE METRICS: Total DLP (mGy-cm): 148 FINDINGS: Bones/joints: No evidence of acute fracture or subluxation of the cervical spine. The craniocervical junction including the atlantoaxial and atlantooccipital articulations are intact. C2-C3: Mild uncovertebral hypertrophy without central or foraminal stenosis. C3-C4: Uncovertebral hypertrophy and facet arthrosis results in mild bilateral foraminal stenosis. No central stenosis. C4-C5: Uncovertebral hypertrophy and facet arthrosis results in moderate bilateral foraminal stenosis. No central stenosis. C5-C6: Uncovertebral hypertrophy and facet arthrosis results in moderate-severe right-sided and moderate left-sided foraminal stenosis. No central stenosis. C6-C7: Uncovertebral hypertrophy results in mild left-sided foraminal stenosis. No central stenosis. C7-T1: No central or foraminal stenosis. Lungs: Right-sided pneumothorax. Soft tissues: No gross soft tissue abnormality. No significant prevertebral edema. No evidence of fluid collection or hematoma. CT/CT cervical spin wo con* [id number] IMPRESSION: 1. No evidence of fracture or subluxation of the cervical spine. 2. Acute right-sided pneumothorax.
--- NOTE | 2023-11-11 16:35 | ED_ITS ---
HPI - Fall 2 General: Chief Complaint: Fall Stated Complaint: fall last night Time Seen by Provider: 11/11/23 16:27 Source: patient and EMS Mode of arrival: EMS Limitations: no limitations History of Present Illness: 73-year-old female is here from residential she had a fall last night had x- rays morning showed a right-sided rib fracture along with a pneumothorax unsure of the size. She does complain of right-sided chest pain she also has some neck pain denies any headache. She denies any extremity pain. Associated symptoms-after fall: Reports chest pain and neck pain; Denies abdominal pain or headache(s) Review of Systems 2 Const: Denies: fever(s), chills, body aches or change in appetite ENMT: Denies: throat pain or dental pain Card: Reports: chest pain Resp: Denies: dyspnea GI: Denies: abdominal pain, nausea, vomiting or diarrhea Musc: Reports: neck pain; Denies: back pain Skin/Breast: Denies: rash Neuro: Denies: headache(s) PFSH ED 2 PFSH: Family History Denies family history of Diabetes CAD (coronary artery disease) Cancer Hypertension Stroke Social History Smoking and tobacco/nicotine status: never used tobacco/nicotine Alcohol intake: never Substance/Drug Use: never Physical Exam 2 Const: COMMON NORMALS: no acute distress, patient oriented x3 and healthy appearing HENMT: COMMON NORMALS: normocephalic and atraumatic HEAD & SCALP: n ormocephalic and atraumatic Eye: COMMON NORMALS: Equal, round and reactive pupils present and EOMs intact bilaterally PUPIL: Yes Equal, round and reactive pupils present Neck/C-Spine: COMMON NORMALS: full ROM and supple Chest: COMMONS NORMALS: normal inspection of the chest OTHER: Right-sided chest pain Resp: COMMON NORMALS: normal respiratory effort, No retractions, No use of accessory muscles and clear to auscultation bilaterally AUSCULTATION: clear to auscultation bilaterally Cardio: COMMON NORMALS: regular rate, regular rhythm and No murmurs present (Cardio) RATE: regular rate RHYTHM: regular rhythm GI: COMMON NORMALS: Normal to inspection, nondistended, normoactive bowel sounds present, Soft to palpation, non-tender and no masses PALPATION: Yes Soft to palpation Extremity: COMMON NORMALS: normal to inspection and full ROM Neuro: COMMON NORMALS: patient oriented x3, moves all extremities and no focal motor deficits Psych: COMMON NORMALS: mental status grossly normal, Normal thought process present and cooperative THOUGHT PROCESS: Normal thought process present Skin: COMMON NORMALS: no rashes or lesions noted and no wounds GENERAL SKIN EXAM: no rashes or lesions noted Course 2 Vital Signs: Vital signs: Vital Signs Temperature 98.2 F 11/11/23 16:29 Pulse Rate 69 11/11/23 18:03 Respiratory Rate 18 11/11/23 16:29 Blood Pressure 191/77 11/11/23 18:03 Pulse Oximetry 100 11/11/23 18:03 Oxygen Delivery Me thod Room Air 11/11/23 16:29 MDM - Fall Medical Decision Making Patient is presenting here with some fall with right rib fractures pneumothorax patient has decision-making capacity she has her own POA from what I can tell over paperwork I did inform her she has rib fractures along with pneumothorax I recommended a chest tube she states that she is not having shortness of breath and would rather hold on the chest tube for now and does not want to have it placed at this time and refused it. I informed read to transfer her to [facility] for trauma services she is excepted to the ER there. Medical Records I reviewed the patient's medical records. Lab Data I reviewed the patient's lab results. 11/11/23 16:52 11/11/23 16:52 Radiology Impressions Chest X-Ray 11/11/23 16:32 IMPRESSION: 1. Small-moderate right-sided pneumothorax. 2.Suspected displaced fractures of the right lateral 9th and 10th ribs. Correlation with CT is recommended. ADDENDUM: 11/11/23 [id number] The findings were verbally communicated by telephone with Dr. COBB at 5:14 PM CDT on 11/11/2023. Chest/Abdomen/Pelvis CT 11/11/23 16:32 IMPRESSION: 1. Moderate right pneumothorax with small right pleural effusion presumably a hemothorax in this setting. 2. Multiple minimally displaced right rib fractures from the 8th through the 12th ribs. 3. Nondisplaced fractures of the left 8th rib on the lateral aspect IMPRESSION: 1. Right pneumothorax and lower rib fractures are again noted. 2. Constipation with solid components noted in the right colon and cecum, recommend follow-up to exclude underlying mass. COMMENTS: Consistent with the [place] [employer]'s Incidental Findings Committee white paper (J Am Trev Radiol 2018): Any incidental renal lesion less than 1 cm or classified as too small to characterize, or any incidental cystic renal lesion characterized as simple-appearing, is likely benign. No follow-up imaging is recommended for these lesions per consensus recommendations based on imaging criteria. ADDENDUM: 11/11/23 [id number] THIS REPORT CONTAINS FINDINGS THAT MAY BE CRITICAL TO PATIENT CARE. The findings were verbally communicated via telephone conference with Dr. James Cobb at 7:07 PM CDT on 11/11/2023. The findings were acknowledged and understood. Pneumothorax is approximately 30%. Head CT 11/11/23 16:32 IMPRESSION: 1. No acute intracranial abnormality. Cervical Spine CT 11/11/23 16:33 IMPRESSION: 1. No evidence of fracture or subluxation of the cervical spine. 2. Acute right-sided pneumothorax. Laboratory Results WBC 9.68 10^3/uL (3.29-11.43) 11/11/23 16:52 RBC 4.18 10^6/uL (3.85-5.65) 11/11/23 16:52 Hgb 12.70 g/dL (11.27-16.99) 11/11/23 16:52 Hct 39.6 % (36-47) 11/11/23 16:52 MCV 94.7 fl (85-98) 11/11/23 16:52 MCH 30.4 pg (27-33) 11/11/23 16:52 MCHC 32.1 g/dL (30-55) 11/11/23 16:52 RDW 13.2 % (12.1-15.1) 11/11/23 16:52 Plt Count 234 10^3/cmm (157-399) 11/11/23 16:52 MPV 10.0 fL (7.4-10.4) 11/11/23 16:52 Neut % (Auto) 69.4 % 11/11/23 16:52 Lymph % (Auto) 17.3 % 11/11/23 16:52 [place] % (Auto) 11.4 % 11/11/23 16:52 Eos % (Auto) 1.1 % 11/11/23 16:52 Baso % (Auto) 0.6 % 11/11/23 16:52 Neut # (Auto) 6.72 10^3/uL (1.8-7.7) 11/11/23 16:52 Lymph # (Auto) 1.7 10^3/uL (0.8-4.8) 11/11/23 16:52 [place] # (Auto) 1.1 10^3/uL (0.2-0.9) H 11/11/23 16:52 Eos # (Auto) 0.1 10^3/uL (0.0-0.8) 11/11/23 16:52 Baso # (Auto) 0.1 10^3/uL (0.0-0.1) 11/11/23 16:52 Nucleated RBC % (auto) 0 % 11/11/23 16:52 Nucleated RBCs # 0.0 /100WBC 11/11/23 16:52 Sodium 143 mmol/L (136-145) 11/11/23 16:52 Potassium 3.9 mmol/L (3.5-5.1) 11/11/23 16:52 Chloride 103 mmol/L (98-107) 11/11/23 16:52 Carbon Dioxide 29 mmol/L (22-29) 11/11/23 16:52 Anion Gap 14.9 (5-19) 11/11/23 16:52 BUN 19 mg/dL (8-23) 11/11/23 16:52 Creatinine 0.6 mg/dL (0.5-0.9) 11/11/23 16:52 GFR Calculation Not Reportable 11/11/23 16:52 Glucose 116 mg/dL (65-115) H 11/11/23 16:52 Calculated Osmolality 299 mOsm/kg (285-295) H 11/11/23 16:52 Calcium 9.2 mg/dL (8.5-10.5) 11/11/23 16:52 Total Bilirubin 0.3 mg/dL (0.15-1.2) 11/11/23 16:52 AST 24 U/L (0-32) 11/11/23 16:52 ALT 12 U/L (0-33) 11/11/23 16:52 Alkaline Phosphatase 94 U/L (35-105) 11/11/23 16:52 Total Protein 7.1 g/dL (6.6-8.7) 11/11/23 16:52 Albumin 4.4 g/dL (3.5-5.2) 11/11/23 16:52 Globulin 2.7 g/dL (1.3-4.6) 11/11/23 16:52 All radiology interpretation(s) finalized by discharge Discharge Plan Discharge Patient Disposition: Xfer Short-Term Hosp Clinical Impression: Right rib fracture, Pneumothorax Condition: Stable Prescriptions: No Action levothyroxine 50 mcg capsule 50 mcg PO DAILY pantoprazole [Protonix] 40 mg tablet,delayed release (DR/EC) 40 mg PO DAILY paroxetine HCl [Paxil] 30 mg tablet 60 mg PO DAILY multivitamin Capsule 1 cap PO DAILY omega-3 fatty acids [Fish Oil Concentrate] 1,000 mg capsule 1,000 mg PO DAILY Prolia 60 mg/mL syringe SUBCUT .every 6 month bisacodyl 10 mg suppository 10 mg AR DAILY PRN levetiracetam [Keppra] 1,000 mg tablet 1,000 mg PO BID Qty: 180 3RF quetiapine 25 mg tablet See Rx Instructions .ROUTE .COMPLEX Qty: 120 3RF Dose Instruction: Take 2 tablets by mouth twice daily Rx Instructions: Take 2 tablets by mouth twice daily donepezil 10 mg tablet See Rx Instructions .ROUTE .COMPLEX Qty: 30 4RF Dose Instruction: Take 1 tablet by mouth once daily Rx Instructions: Take 1 tablet by mouth once daily lacosamide 200 mg tablet 200 mg PO BID 90 Days Qty: 180 2RF Rx Instructions: Take 1 tab in the morning and 1 tab in the evening Referrals: Duong Ríos MD [Primary Care Provider] - Coding Level of Care Code ED Architectural Practice Manager for [facility] Connelly
[2023-11-11 17:04] LABS: Basophils # 0.1 10^3/uL (0.0-0.1); Basophils % 0.6 %; Eosinophils # 0.1 10^3/uL (0.0-0.8); Eosinophils % 1.1 %; Hematocrit 39.6 % (36-47); Lymphocytes # 1.7 10^3/uL (0.8-4.8); Lymphocytes % 17.3 %; Mean Corpuscular HGB Conc 32.1 g/dL (30-55); Mean Corpuscular Hemoglobin 30.4 pg (27-33); Mean Corpuscular Volume 94.7 fl (85-98); Monocytes # 1.1 10^3/uL (0.2-0.9); Monocytes % 11.4 %; Neutrophils # 6.72 10^3/uL (1.8-7.7); Neutrophils % 69.4 %; Nucleated Red Blood Cells % 0 %; Platelet Count 234 10^3/cmm (157-399); Red Blood Count 4.18 10^6/uL (3.85-5.65); Red Cell Distribution Width 13.2 % (12.1-15.1); White Blood Count 9.68 10^3/uL (3.29-11.43)
[2023-11-11 17:22] LABS: Alanine Aminotransferase 12 U/L (0-33); Albumin Level 4.4 g/dL (3.5-5.2); Alkaline Phosphatase 94 U/L (35-105); Anion Gap 14.9 (5-19); Aspartate Amino Transferase 24 U/L (0-32); Blood Urea Nitrogen 19 mg/dL (8-23); Calcium 9.2 mg/dL (8.5-10.5); Carbon Dioxide 29 mmol/L (22-29); Chloride 103 mmol/L (98-107); Globulin 2.7 g/dL (1.3-4.6); Glucose 116 mg/dL (65-115); Osmolality Calculated 299 mOsm/kg (285-295); Potassium 3.9 mmol/L (3.5-5.1); Sodium 143 mmol/L (136-145); Total Bilirubin 0.3 mg/dL (0.15-1.2); Total Protein 7.1 g/dL (6.6-8.7)
[2023-11-11 18:03] VITALS: BP 191/77; PULSE 69; O2SAT 100
[2023-11-11] MEDS: iohexol 350 mg/mL 500 mL Btl (per mL) IV (18:18)
[2023-11-11 19:57] LABS: Add Urine Microscopic? NO; Charge for UA Resulting for Rev
[2023-11-11 20:08] LABS: Bilirubin Urine Neg (Negative); Blood Urine Neg (Negative); Glucose Urine UA Norm (Normal); Ketones Urine Negative (Negative); Leukocyte Esterase Urine Negative (Negative); Nitrate Urine Negative (Negative); Protein Urine Neg (Negative); Specific Gravity, Urine 1.015 (1.005-1.030); Sulfosalicylic Acid Urine Negative (Negative); Urine Appearance Clear (CLEAR); Urine Color Yellow (Yellow); Urobilinogen Urine Norm (Negative); pH Urine 8 (5-7)
== END 2023-11-11 20:45 | disposition short-term general hospital (02) ==
PROVIDERS: Emergency Provider Emergency Medicine; PCP Pathology Anatomic Pathology & Clinical Pathology
DX: S22.41XA Multiple fractures of ribs, right side, initial encounter for closed fracture (principal); S22.32XA Fracture of one rib, left side, initial encounter for closed fracture; S27.0XXA Traumatic pneumothorax, initial encounter; W19.XXXA Unspecified fall, initial encounter
CPT/HCPCS: 36415; 70450; 71045; 71260; 72125; 74177; 80053; 81003; 85025; 99285; Q9967

== ENCOUNTER → 2024-01-27 11:10 | Outpatient (BNVA) | payer MEDICARE, BC, SELFPAY | PROVIDERS: PCP Pathology Anatomic Pathology & Clinical Pathology; Visit Provider Specialist | DX: R29.90 Unspecified symptoms and signs involving the nervous system (principal); G40.209 Localization-related (focal) (partial) symptomatic epilepsy and epileptic syndromes with complex partial seizures, not intractable, without status epilepticus | CPT/HCPCS: 99214; 99215 ==

== ENCOUNTER → 2024-08-18 14:28 | Outpatient (BNVA) | payer MEDICARE, BC, SELFPAY | PROVIDERS: PCP Pathology Anatomic Pathology & Clinical Pathology; Visit Provider Specialist | DX: R29.90 Unspecified symptoms and signs involving the nervous system (principal); G40.209 Localization-related (focal) (partial) symptomatic epilepsy and epileptic syndromes with complex partial seizures, not intractable, without status epilepticus; F31.9 Bipolar disorder, unspecified | CPT/HCPCS: 99213 ==

== ENCOUNTER 2025-01-21 12:25 | Inpatient (IN) | payer MEDICARE, BC, SELFPAY ==
[2025-01-21] VITALS (11 sets, daily range): BP systolic 138–162; BP diastolic 70–98; PULSE 65–78; RESP 14–17; TEMP 36.8–37; O2SAT 94–98; BMI 20.2
--- NOTE | 2025-01-21 12:29 | CTR_ITS ---
PROCEDURE INFORMATION: Exam: CT Head Without Contrast Exam date and time: 01/21/2025 12:36 PM Age: 74 years old Clinical indication: Injury or trauma; Fall; Blunt trauma (contusions or hematomas); Without loss of consciousness; Additional info: Fall, head strike, eval intracranial injury TECHNIQUE: Imaging protocol: Computed tomography of the head without contrast. Radiation optimization: All CT scans at this facility use at least one of these dose optimization techniques: automated exposure control; mA and/or kV adjustment per patient size (includes targeted exams where dose is matched to clinical indication); or iterative reconstruction. COMPARISON: CT head wo con* [id number] 11/11/2023 5:49 PM RADIATION DOSE METRICS: Total DLP (mGy-cm): 905.68 FINDINGS: Brain: No midline shift or acute intracranial hemorrhage. Cortical atrophy is present. Chronic lacunar infarcts in bilateral basal ganglia. Cerebral ventricles: No ventriculomegaly. Paranasal sinuses: Visualized sinuses are unremarkable. No fluid levels. Mastoid air cells: Visualized mastoid air cells are well aerated. Bones: Unremarkable. No acute fracture. Soft tissues: Unremarkable. CT/CT head wo con* [id number] IMPRESSION: 1. No acute intracranial finding. 2. Cortical atrophy is present. 3. Additional findings as described.
--- NOTE | 2025-01-21 12:29 | XRR_ITS ---
PROCEDURE INFORMATION: Exam: XR Right Hip Exam date and time: 01/21/2025 12:54 PM Age: 74 years old Clinical indication: Hip pain; Right hip; Prior surgery; Surgery date: 6+ months; Surgery type: Lt hip; Additional info: RT hip pain post fall x 2 days ago TECHNIQUE: Imaging protocol: Radiologic exam of the right hip. Views: 1 view hip with pelvis when performed. COMPARISON: CT abdomen pelvis w con* [id number] 08/27/2020 9:58 PM FINDINGS: Bones/joints: Right femoral neck fracture. There is no pelvic ring fracture. Prior left hip replacement is seen. Soft tissues: Unremarkable. XR/XR hip RT 2-3V wo/w pel* [id number] IMPRESSION: Right femoral neck fracture.
[2025-01-21 12:56] LABS: Hematocrit 38.9 % (36-47); Hemoglobin 12.60 g/dL (11.27-16.99); Mean Corpuscular HGB Conc 32.4 g/dL (30-55); Mean Corpuscular Hemoglobin 30.7 pg (27-33); Mean Corpuscular Volume 94.9 fl (85-98); Nucleated Red Blood Cells % 0 %; Platelet Count 208 10^3/cmm (157-399); Red Blood Count 4.10 10^6/uL (3.85-5.65); White Blood Count 7.98 10^3/uL (3.29-11.43)
[2025-01-21 13:11] LABS: Anion Gap 13.3 (5-19); Blood Urea Nitrogen 10 mg/dL (8-23); Calcium 9.6 mg/dL (8.5-10.5); Carbon Dioxide 30 mmol/L (22-29); Chloride 102 mmol/L (98-107); Creatinine Clr Calc Pharmacy 55.7085; Glucose 121 mg/dL (65-115); Osmolality Calculated 292 mOsm/kg (285-295); Potassium 4.3 mmol/L (3.5-5.1); Sodium 141 mmol/L (136-145)
--- NOTE | 2025-01-21 13:11 | XRR_ITS ---
PROCEDURE INFORMATION: Exam: XR Chest Exam date and time: 01/21/2025 1:01 PM Age: 74 years old Clinical indication: Pre-operative exam; Respiratory screening exam; Additional info: RT hip pain post fall x 2 days ago TECHNIQUE: Imaging protocol: Radiologic exam of the chest. Views: 1 view. COMPARISON: CT chest abdpel w/*[id number] 11/11/2023 5:55 PM FINDINGS: Lungs: The pulmonary vessels are within normal limits. The lungs are clear. Pleural spaces: No pneumothorax. Heart/Mediastinum: The cardiomediastinal silhouette is within normal limits. Bones/joints: Unremarkable. Soft tissues: Left chest wall chronic deformity. XR/XR chest 1V portable [id number] IMPRESSION: No acute pulmonary finding.
--- NOTE | 2025-01-21 13:13 | W.ED.EXTPRO ---
HPI - Extremity Problem General: Chief complaint: Extremity Injury, Lower Stated complaint: right hip pain s/p fall Time Seen by Provider: 01/21/25 12:26 History of Present Illness: HPI: Patient fell night while attempting get dressed. Fell. States that she did strike her head without loss of consciousness. Patient has no head pain at this time, headache, vision changes, numbness or tingling. Patient states she has aching pain in her right hip only. No fevers, sweats, chills. No prodromal symptoms prior to the fall. Seems as though she lost her balance while getting her close on. REVIEW OF SYSTEMS: 10 systems reviewed and otherwise unremarkable except for those noted in HPI. PHYSCIAL EXAM: Triage vital signs reviewed Gen: A&O NAD HEENT: NCAT, EOMI, not icteric. External ears normal. No rhinorrhea. Moist mucous membranes. No hemotympanum, Wolfe sign, or raccoon eyes. Neck: Supple, full range of motion, no observable masses, No meningeal sign. Lungs: No Respiratory distress. CV: RRR, no edema. Abdomen: Soft, nondistended, No rebound tenderness. MSK: No joint swelling, no redness. Full range of motion about the right hip, mild tenderness to palpation of the right hip. No pain with axial loading. Skin: No rashes, petechiae, lesions. Normal color per patient. Neuro: Normal Gait, Grossly intact. Psych: Appropriate for situation. PROCEDURES: N/A Related Data Home Medications ?Medication ?Instructions ?Recorded ?Confirmed levothyroxine 50 mcg capsule 50 mcg PO DAILY 08/01/19 08/18/24 multivitamin 1 cap PO DAILY 08/01/19 08/18/24 omega-3 fatty acids 1,000 mg 1,000 mg PO DAILY 08/01/19 08/18/24 capsule (Fish Oil Concentrate) pantoprazole 40 mg tablet,delayed 40 mg PO DAILY 08/01/19 08/18/24 release (Protonix) paroxetine HCl 30 mg tablet (Paxil) 60 mg PO DAILY 08/01/19 08/18/24 bisacodyl 10 mg rectal suppository 10 mg RI DAILY PRN 01/27/23 08/18/24 Previous Rx's ?Medication ?Instructions ?Recorded quetiapine 25 mg tablet See Rx Instructions .Route 02/08/20 .COMPLEX #120 tabs donepezil 10 mg tablet See Rx Instructions .Route 10/22/20 .COMPLEX #30 tabs aripiprazole 5 mg tablet (Abilify) 5 mg PO DAILY #90 tabs 04/05/24 levetiracetam 1,000 mg tablet 1,000 mg PO BID #180 tabs 10/12/24 (Keppra) lacosamide 200 mg tablet 200 mg PO BID 90 days #180 tabs 12/26/24 Allergies Allergy/AdvReac Type Severity Reaction Status Date / Time ibuprofen (From Motrin) Allergy ALGY-Rash Verified 08/18/24 15:25 [facility]LY [facility], [facility] ED PFSH: Family History Denies family history of Diabetes CAD (coronary artery disease) Cancer Hypertension Stroke Social History Smoking and tobacco/nicotine status: never used tobacco/nicotine Alcohol intake: never Substance/Drug Use: never Course Vital Signs: Vital signs: Vital Signs Temperature 98.6 F 01/21/25 12:31 Pulse Rate 78 01/21/25 12:31 Respiratory Rate 16 01/21/25 12:31 Blood Pressure 148/74 01/21/25 13:15 Pulse Oximetry 96 01/21/25 13:15 Oxygen Delivery Me thod Room Air 01/21/25 12:31 MDM - Extremity (Nontraumatic) Medical Decision Making MEDICAL DECISION MAKING: Differential diagnoses considered but not limited to: Fracture, strain, sprain, occult fracture requiring advanced imaging modalities, urinary tract infection, intracranial catastrophe. Vitals nonactionable. Given history, examination, and pretest risk factors, elderly patient with ground-level fall and reported head strike. CT head negative. X-ray of the hip demonstrating femoral neck fracture. Patient will be admitted to hospital service. Contacted on-call orthopedist who agrees with this plan. DISPO: Admit hospitalist David Ponce MD [place] physician[place] [facility] [place] [phone] Lab Data 01/21/25 12:48 01/21/25 12:[address] 01/21/25 12:29 IMPRESSION: 1. No acute intracranial finding. 2. Cortical atrophy is present. 3. Additional findings as described. Hip/Pelvis X-Ray 01/21/25 12:29 IMPRESSION: Right femoral neck fracture. Chest X-Ray 01/21/25 13:11 IMPRESSION: No acute pulmonary finding. Laboratory Results WBC 7.98 10^3/uL (3.29-11.43) 01/21/25 12:48 RBC 4.10 10^6/uL (3.85-5.65) 01/21/25 12:48 Hgb 12.60 g/dL (11.27-16.99) 01/21/25 12:48 Hct 38.9 % (36-47) 01/21/25 12:48 MCV 94.9 fl (85-98) 01/21/25 12:48 MCH 30.7 pg (27-33) 01/21/25 12:48 MCHC 32.4 g/dL (30-55) 01/21/25 12:48 RDW 13.0 % (12.1-15.1) 01/21/25 12:48 Plt Count 208 10^3/cmm (157-399) 01/21/25 12:48 MPV 9.7 fL (7.4-10.4) 01/21/25 12:48 Neut % (Auto) 75.7 % 01/21/25 12:48 Lymph % (Auto) 13.2 % 01/21/25 12:48 [place] % (Auto) 8.1 % 01/21/25 12:48 Eos % (Auto) 2.1 % 01/21/25 12:48 Baso % (Auto) 0.6 % 01/21/25 12:48 Neut # (Auto) 6.04 10^3/uL (1.8-7.7) 01/21/25 12:48 Lymph # (Auto) 1.1 10^3/uL (0.8-4.8) 01/21/25 12:48 [place] # (Auto) 0.7 10^3/uL (0.2-0.9) 01/21/25 12:48 Eos # (Auto) 0.2 10^3/uL (0.0-0.8) 01/21/25 12:48 Baso # (Auto) 0.1 10^3/uL (0.0-0.1) 01/21/25 12:48 Nucleated RBC % (auto) 0 % 01/21/25 12:48 Nucleated RBCs # 0.0 /100WBC 01/21/25 12:48 Sodium 141 mmol/L (136-145) 01/21/25 12:48 Potassium 4.3 mmol/L (3.5-5.1) 01/21/25 12:48 Chloride 102 mmol/L (98-107) 01/21/25 12:48 Carbon Dioxide 30 mmol/L (22-29) H 01/21/25 12:48 Anion Gap 13.3 (5-19) 01/21/25 12:48 BUN 10 mg/dL (8-23) 01/21/25 12:48 Creatinine 0.6 mg/dL (0.5-0.9) 01/21/25 12:48 GFR Calculation Not Reportable 01/21/25 12:48 Glucose 121 mg/dL (65-115) H 01/21/25 12:48 Calculated Osmolality 292 mOsm/kg (285-295) 01/21/25 12:48 Calcium 9.6 mg/dL (8.5-10.5) 01/21/25 12:48 Urine Color Yellow (Yellow) 01/21/25 13:36 Urine Appearance Clear (CLEAR) 01/21/25 13:36 Urine pH 6.5 (5-7) 01/21/25 13:36 Ur Specific [place] 1.007 (1.005-1.030) 01/21/25 13:36 Urine Protein Negative (Negative) 01/21/25 13:36 Urine Glucose (UA) Negative (Normal) 01/21/25 13:36 Urine Ketones Negative (Negative) 01/21/25 13:36 Urine Blood Negative (Negative) 01/21/25 13:36 Urine Nitrate Negative (Negative) 01/21/25 13:36 Urine Bilirubin Negative (Negative) 01/21/25 13:36 Urine Urobilinogen 1.0 mg/dL (Negative) 01/21/25 13:36 Ur Leukocyte Esterase Negative (Negative) 01/21/25 13:36 Urine RBC 0-2 /hpf (0-2) 01/21/25 13:36 Urine WBC 0-5 /hpf (0-5) 01/21/25 13:36 Ur Squamous Epith Cells 0-5 /hpf (0-5) 01/21/25 13:36 Amorphous Sediment Not Reportable 01/21/25 13:36 Urine Bacteria None seen /hpf (NONE) 01/21/25 13:36 Hyaline Casts 0.40 /lpf 01/21/25 13:36 All radiology interpretation(s) finalized by discharge Discharge Plan Discharge Patient Disposition: Placed in Observation Clinical Impression: Acute pain of right hip, Closed fracture of neck of right femur Discharge Diet: Advance as tolerated Discharge Activity: Resume usual activity Coding Level of Care Code ED Color Control Operator for Soniya Connelly
[2025-01-21 13:44] LABS: Glucose Urine UA Negative (Normal); Nitrate Urine Negative (Negative); Specific Gravity, Urine 1.007 (1.005-1.030)
[2025-01-21 13:47] LABS: Add Urine Microscopic? YES
--- NOTE | 2025-01-21 13:47 | PM.HP ---
Providers/Chief Complaint Primary Care Provider: Duong Ríos Chief Complaint: right hip pain s/p fall History of Present Illness Elaina Michaels is a 74 year old female resident of assisted living, bipolar disorder, generalized epilepsy presents to the ER today because of hip pain. Patient states she sustained a fall while she was trying to wear her nightgown 2 nights ago. Today morning she started having pain in her hip and hence she was sent to the ER. Patient denies pain anywhere else. In the ER she was found to have right femoral neck fracture. Orthopedics was consulted. Hospitalist was requested for further evaluation and management. Review of Systems General: Reports: 10 or more systems reviewed and unremarkable except in HPI and below Const: Denies: fever(s), chills, body aches, change in appetite, change in weight, malaise, night sweats, diaphoresis, change in sleep pattern, daytime sleepiness or snoring Eyes: Denies: change in vision, blurry vision, photophobia, eye discomfort or eye discharge ENMT: Denies: throat pain, enlarged tonsils, hoarseness, mouth pain, oral sores, dry mouth, tinnitus, nasal congestion or post nasal drip Card: Denies: chest pain, palpitations, irregular heart rhythm, edema, swelling of feet/ankles, lightheadedness, syncope, pre-syncope, dyspnea on exertion, orthopnea, leg pain with exertion or acrocyanosis Resp: Denies: dyspnea, productive cough, non-productive cough, wheezing, stridor, pain on inspiration, change in phlegm color, hemoptysis or chest congestion GI: Denies: abdominal pain, nausea, vomiting, hematemesis, coffee ground emesis, dysphagia, heartburn, diarrhea, constipation, bloating, GI cramping, change in bowel habits, pain on defecation, hematochezia or melena : Denies: flank pain, dysuria, urinary frequency, urinary urgency, urinary hesitancy, nocturia or hematuria Musc: Denies: neck pain, back pain, extremity pain, joint pain, joint swelling, joint redness, joint stiffness or limited range of motion Neuro: Denies: headache(s), numbness in extremities, weakness in extremities, sensory changes, lack of coordination, difficulty walking, frequent falls, dizziness, vertigo, confusion, Slurred speech present, difficulty communicating thoughts or seizure-like activity Psych: Denies: anxiety, depression, mood swings, panic attacks, hopelessness or irritability Endo: Denies: polyuria, polydipsia, tired all the time, cold intolerance, excessive sweating, flushing or heat intolerance Bryan/Lymph: Denies: easy bruising or easy bleeding All/Imm: Denies: tongue swelling, facial swelling or acute wheezing Medications/Allergies Home Medications ?Medication ?Instructions ?Recorded ?Confirmed ?Last Taken ?Type pantoprazole 40 mg tablet,delayed 40 mg PO DAILY 08/01/19 01/21/25 01/21/25 History release (Protonix) bisacodyl 10 mg rectal suppository 10 mg [place] DAILY PRN Constipation 01/27/23 01/21/25 Unknown History aripiprazole 5 mg tablet (Abilify) 5 mg PO DAILY #90 tabs 04/05/24 01/21/25 01/21/25 Rx levetiracetam 1,000 mg tablet 1,000 mg PO BID #180 tabs 10/12/24 01/21/25 01/21/25 Rx (Keppra) lacosamide 200 mg tablet 200 mg PO BID 90 days #180 tabs 12/26/24 01/21/25 01/21/25 Rx Lactobacillus rhamnosus GG 10 1 cap PO DAILY PRN while on abx 01/21/25 01/21/25 Unknown History billion cell capsule (Culturelle) acetaminophen 325 mg tablet 650 mg PO QID PRN pain/fever 01/21/25 01/21/25 Unknown History docusate sodium 100 mg capsule 100 mg PO BEDTIME 01/21/25 01/21/25 01/20/25 History (Colace) donepezil 10 mg tablet 10 mg PO DAILY 01/21/25 01/21/25 01/21/25 History magnesium hydroxide 400 mg/5 mL 30 ml PO DAILY PRN Constipation 01/21/25 01/21/25 Unknown History oral suspension (Milk of Magnesia) multivitamin 1 tab PO QAM 01/21/25 01/21/25 01/21/25 History ondansetron HCl 4 mg tablet 4 mg PO Q4H PRN Nausea And Vomiting 01/21/25 01/21/25 Unknown History paroxetine HCl 20 mg tablet 20 mg PO DAILY 01/21/25 01/21/2501/21/25 History sodium phosphates 19 gram-7 118 ml [place] DAILY PRN Constipation 01/21/25 01/21/25 Unknown History gram/118 mL enema (Fleet Enema) Allergies Allergy/AdvReac Type Severity Reaction Status Date / Time ibuprofen (From Motrin) Allergy ALGY-Rash Verified 08/18/24 15:25 PFSH Acute PFSH: Medical History (Updated 01/21/25 @ 16:50 by Surjit Anderson MD) Secondarily generalized 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, major Gastrostomy tube skin breakdown Bipolar disorder History of hip fracture Hyperlipidemia Surgical History (Updated 01/21/25 @ 16:50 by Surjit Anderson MD) History of colostomy reversal 2018 Family History Denies family history of Diabetes CAD (coronary artery disease) Cancer Hypertension Stroke Social History Smoking and tobacco/nicotine status: never used tobacco/nicotine Alcohol intake: never Substance/Drug Use: never Vitals/I&O/Wt Last Vital Signs Temp 98.6 F 01/21/25 12:31 Pulse 78 01/21/25 12:31 Resp 16 01/21/25 12:31 BP 148/74 01/21/25 13:15 Pulse Ox 96 01/21/25 13:15 O2 Del Method Room Air 01/21/25 12:31 Weight last 48 hrs Weight 56.245 kg Physical Exam Narrative: General: No acute distress, AO x3 HEENT: PERRLA, pupils bilaterally equal and reactive Chest: Normal vesicular breath sounds, no added sounds, equal good air entry bilaterally CVS: S1-S2 regular, no murmurs, no tachycardia, no gallops, no rubs Abdomen: Soft, nontender, no organomegaly, bowel sounds present Neuro: No focal deficits, no facial deformity, AO x3, power 5/5 in all limbs Data 01/21/25 12:48 01/21/25 12:48 A&P Assessment and plan 1. Closed fracture of neck of right femur: Orthopedic has been consulted from the ER. Plan for ORIF. Monitor hemoglobin. Perioperative antibiotics, anticoagulation as per orthopedic team. 2. Primary generalized epilepsy, major: 3. Bipolar disorder: Plan: Continue other chronic home medications including aripiprazole, donepezil, Keppra, paroxetine as before. CODE STATUS: Full code Regular diet, n.p.o. after midnight Protonix for PUD prophylaxis Heparin for DVT prophylaxis PDMP PDMP Reviewed: Not Reviewed Attestations Medical Necessity Statement*: Admission for more than 2 midnights for management of femoral neck fracture. Diagnoses Closed fracture of neck of right femur S72.001A Primary generalized epilepsy, major G40.309 Bipolar disorder F31.9
[2025-01-21 14:08] LABS: Lactic Sepsis W/Reflex 1.7 mmol/L (0.5-2.2)
--- NOTE | 2025-01-21 14:16 | PC.PHAR ---
Pt is resident at [facility]
[2025-01-21 14:17] LABS: Procalcitonin 0.08 ng/mL (0-0.5)
[2025-01-21 18:57] LABS: Iron 20 ug/dL (37-145); Thyroid Stimulating Hormone 1.90 uIU/mL (0.27-4.20); Total Iron Binding Capacity 268 mcg/dl; Unsaturated Iron Binding 248 ug/dL (112-347); Vitamin B12 806 pg/mL (232-1245)
[2025-01-21] MEDS: heparin 5,000 unit/mL INJ 1 mL 5000 UNIT SUBCUT (19:39)
[2025-01-21 22:13] LABS: Estmated Average Glucose 103; Hemoglobin A1C 5.2 % (4.0-6.0)
[2025-01-22] VITALS: BP 148/64; PULSE 73; RESP 17; TEMP 36.7; O2SAT 95
[2025-01-22 04:00] VITALS: BP 146/67; PULSE 67; RESP 14; TEMP 36.6; O2SAT 92
[2025-01-22 04:26] LABS: Hematocrit 34.2 % (36-47); Hemoglobin 11.00 g/dL (11.27-16.99); Mean Corpuscular HGB Conc 32.2 g/dL (30-55); Mean Corpuscular Hemoglobin 30.2 pg (27-33); Mean Corpuscular Volume 94.0 fl (85-98); Nucleated Red Blood Cells % 0 %; Platelet Count 199 10^3/cmm (157-399); Red Blood Count 3.64 10^6/uL (3.85-5.65); White Blood Count 6.61 10^3/uL (3.29-11.43)
[2025-01-22 04:44] LABS: Procalcitonin 0.07 ng/mL (0-0.5)
[2025-01-22 04:47] LABS: Alanine Aminotransferase 29 U/L (0-33); Albumin Level 3.6 g/dL (3.5-5.2); Alkaline Phosphatase 80 U/L (35-105); Anion Gap 12.7 (5-19); Aspartate Amino Transferase 17 U/L (0-32); Blood Urea Nitrogen 13 mg/dL (8-23); Calcium 9.1 mg/dL (8.5-10.5); Carbon Dioxide 28 mmol/L (22-29); Chloride 106 mmol/L (98-107); Creatinine Clr Calc Pharmacy 55.8654; Globulin 2.5 g/dL (1.3-4.6); Glucose 99 mg/dL (65-115); Magnesium 2.2 mg/dL (1.7-2.3); Osmolality Calculated 296 mOsm/kg (285-295); Potassium 3.7 mmol/L (3.5-5.1); Sodium 143 mmol/L (136-145); Total Protein 6.1 g/dL (6.6-8.7)
[2025-01-22 04:48] LABS: Cholesterol 189 mg/dL (0-200); HDL Cholesterol 86 mg/dL (60-100); Triglycerides 61 mg/dL (0-150)
[2025-01-22 08:15] VITALS: BP 150/71; PULSE 63; RESP 14; TEMP 36.6; O2SAT 94
[2025-01-22 11:50] VITALS: BP 151/77; PULSE 66; RESP 18; TEMP 36.8; O2SAT 90
--- NOTE | 2025-01-22 12:50 | P.PN_ITS ---
Subjective 2 Subjective: No acute events overnight. Patient has remained hemodynamically stable and afebrile. Denies any nausea, vomit, headache. Vitals/I&O/Wt Last Vital Signs Temp 98.3 F 01/22/25 11:50 Pulse 66 01/22/25 11:50 Resp 18 01/22/25 11:50 BP 151/77 01/22/25 11:50 Pulse Ox 90 01/22/25 11:50 O2 Del Method Room Air 01/22/25 11:50 01/21/25 01/22/25 01/22/25 22:59 06:59 14:59 Intake Total 100 / 100 Output Total 750 / 750 Balance 100 / 100 -750 / -650 Weight last 48 hrs Weight 56.654 kg Weight 56.971 kg Weight 60.237 kg Weight 56.245 kg Physical Exam 2 Narrative: General: No acute distress, AO x3 HEENT: PERRLA, pupils bilaterally equal and reactive Chest: Normal vesicular breath sounds, no added sounds, equal good air entry bilaterally CVS: S1-S2 regular, no murmurs, no tachycardia, no gallops, no rubs Abdomen: Soft, nontender, no organomegaly, bowel sounds present Neuro: No focal deficits, no facial deformity, AO x3, power 5/5 in all limbs Urinary Catheter Management: Jaramillo: Cath Placed During This Visit: yes Reason for Continuing Indwelling Catheter: Perioperative Use in Selected Surgeries Urinary Catheter Date of Insertion: 01/21/25 Urinary Catheter Time of Insertion: 19:48 Data 01/22/25 03:07 01/22/25 03:07 A&P Assessment and plan 1. Closed fracture of neck of right femur: Orthopedic has been consulted from the ER. Plan for ORIF. Monitor hemoglobin. Perioperative antibiotics, anticoagulation as per orthopedic team. 2. Primary generalized epilepsy, major: 3. Bipolar disorder: Plan: Continue other chronic home medications including aripiprazole, donepezil, Keppra, paroxetine as before. CODE STATUS: Full code Regular diet, n.p.o. after midnight Protonix for PUD prophylaxis Heparin for DVT prophylaxis Plan for the day: Awaiting ORIF. Continue with current pain management. Heparin for DVT prophylaxis. Continue other chronic home medications. PDMP PDMP Reviewed: Not Reviewed Attestations 2 Medical Necessity Statement*: Requires further hospitalization for management of femur fracture requiring ORIF Diagnoses Closed fracture of neck of right femur S72.001A Encounter type: initial encounter Primary generalized epilepsy, major G40.309 Bipolar disorder F31.9 Active/Remission status: in partial remission
--- NOTE | 2025-01-22 13:20 | PM.CONSULT ---
Providers/Reason For Consult Consulting Physician/Specialty*: Hospitalist Reason for Consult*: Right femoral neck fracture Attending Physician: Surjit Anderson MD Primary Care Provider: Duong Ríos History of Present Illness History of Present Illness Elaina Michaels is a 74 year old female was trying to put her close on night and fell. Started having pain yesterday came to the ER was found to have a right femoral neck fracture. Review of Systems General: Reports: 10 or more systems reviewed and unremarkable except in HPI and below Const: Denies: fever(s), chills, body aches, change in appetite, change in weight, malaise, night sweats, diaphoresis, change in sleep pattern, daytime sleepiness or snoring Eyes: Denies: change in vision, blurry vision, photophobia, eye discomfort or eye discharge ENMT: Denies: throat pain, enlarged tonsils, hoarseness, mouth pain, oral sores, dry mouth, tinnitus, nasal congestion or post nasal drip Card: Denies: chest pain, palpitations, irregular heart rhythm, edema, swelling of feet/ankles, lightheadedness, syncope, pre-syncope, dyspnea on exertion, orthopnea, leg pain with exertion or acrocyanosis Resp: Denies: dyspnea, productive cough, non-productive cough, wheezing, stridor, pain on inspiration, change in phlegm color, hemoptysis or chest congestion GI: Denies: abdominal pain, nausea, vomiting, hematemesis, coffee ground emesis, dysphagia, heartburn, diarrhea, constipation, bloating, GI cramping, change in bowel habits, pain on defecation, hematochezia or melena : Denies: flank pain, dysuria, urinary frequency, urinary urgency, urinary hesitancy, nocturia or hematuria Musc: Denies: neck pain, back pain, extremity pain, joint pain, joint swelling, joint redness, joint stiffness or limited range of motion Neuro: Denies: headache(s), numbness in extremities, weakness in extremities, sensory changes, lack of coordination, difficulty walking, frequent falls, dizziness, vertigo, confusion, Slurred speech present, difficulty communicating thoughts or seizure-like activity Psych: Denies: anxiety, depression, mood swings, panic attacks, hopelessness or irritability Endo: Denies: polyuria, polydipsia, tired all the time, cold intolerance, excessive sweating, flushing or heat intolerance Bryan/Lymph: Denies: easy bruising or easy bleeding All/Imm: Denies: tongue swelling, facial swelling or acute wheezing Medications/Allergies Home Medications ?Medication ?Instructions ?Recorded ?Confirmed ?Last Taken ?Type pantoprazole 40 mg tablet,delayed 40 mg PO DAILY 08/01/19 01/21/25 01/21/25 History release (Protonix) bisacodyl 10 mg rectal suppository 10 mg [place] DAILY PRN Constipation 01/27/23 01/21/25 Unknown History aripiprazole 5 mg tablet (Abilify) 5 mg PO DAILY #90 tabs 04/05/24 01/21/25 01/21/25 Rx levetiracetam 1,000 mg tablet 1,000 mg PO BID #180 tabs 10/12/24 01/21/25 01/21/25 Rx (Keppra) lacosamide 200 mg tablet 200 mg PO BID 90 days #180 tabs 12/26/24 01/21/25 01/21/25 Rx Lactobacillus rhamnosus GG 10 1 cap PO DAILY PRN while on abx 01/21/25 01/21/25 Unknown History billion cell capsule (Culturelle) acetaminophen 325 mg tablet 650 mg PO QID PRN pain/fever 01/21/25 01/21/25 Unknown History docusate sodium 100 mg capsule 100 mg PO BEDTIME 01/21/25 01/21/25 01/20/25 History (Colace) donepezil 10 mg tablet 10 mg PO DAILY 01/21/25 01/21/25 01/21/25 History magnesium hydroxide 400 mg/5 mL 30 ml PO DAILY PRN Constipation 01/21/25 01/21/25 Unknown History oral suspension (Milk of Magnesia) multivitamin 1 tab PO QAM 01/21/25 01/21/25 01/21/25 History ondansetron HCl 4 mg tablet 4 mg PO Q4H PRN Nausea And Vomiting 01/21/25 01/21/25 Unknown History paroxetine HCl 20 mg tablet 20 mg PO DAILY 01/21/25 01/21/25 01/21/25 History sodium phosphates 19 gram-7 118 ml [place] DAILY PRN Constipation 01/21/25 01/21/25 Unknown History gram/118 mL enema (Fleet Enema) Allergies Allergy/AdvReac Type Severity Reaction Status Date / Time ibuprofen (From Motrin) Allergy ALGY-Rash Verified 08/18/24 15:25 Current Medications Generic Name Dose Route Start Last Admin Trade Name [place] PRN Reason Stop Dose Admin Aripiprazole 5 mg 01/22/25 09:00 01/22/25 10:49 Aripiprazole 10 Mg Tablet PO 5 mg DAILY AREN Administration Docusate Sodium 100 mg 01/21/25 18:21 01/22/25 10:49 Docusate Sodium 100 Mg Capsule PO 100 mg BID AREN Administration Donepezil HCl 10 mg 01/22/25 09:00 01/22/25 10:46 Donepezil 5 Mg Tablet PO 10 mg DAILY AREN Administration Heparin Sodium (Porcine) 5,000 unit 01/21/25 18:21 01/22/25 06:33 Heparin 5,000 Unit/Ml Inj 1 Ml SUBCUT Not Given Q12H AREN Sodium Chloride 1,000 mls @ 50 mls/hr 01/21/25 18:21 01/21/25 19:36 Sodium Chloride 0.9% IV 50 mls/hr .Q20H AREN Administration Lacosamide 200 mg 01/21/25 18:21 01/22/25 10:49 Lacosamide 50 Mg Tablet PO 200 mg BID AREN Administration Levetiracetam 1,000 mg 01/21/25 18:21 01/22/25 10:48 Levetiracetam 500 Mg Tablet PO 1,000 mg BID AREN Administration Pantoprazole Sodium 40 mg 01/22/25 09:00 01/22/25 10:[address] 40 Mg Tablet PO 40 mg DAILY AREN Administration Paroxetine HCl 20 mg 01/22/25 09:00 01/22/25 10:49 Paroxetine 20 Mg Tablet PO 20 mg DAILY AREN Administration PFSH Acute PFSH: Medical History (Updated 01/22/25 @ 13:22 by Devaughn Bowie DO) Secondarily generalized 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, major Gastrostomy tube skin breakdown Bipolar disorder History of hip fracture Hyperlipidemia Surgical History (Updated 01/21/25 @ 16:50 by Surjit Anderson MD) History of colostomy reversal 2019 Family History Denies family history of Diabetes CAD (coronary artery disease) Cancer Hypertension Stroke Social History Smoking and tobacco/nicotine status: never used tobacco/nicotine Alcohol intake: never Substance/Drug Use: never Vitals/I&O/Wt Last Vital Signs Temp 98.3 F 01/22/25 11:50 Pulse 66 01/22/25 11:50 Resp 18 01/22/25 11:50 BP 151/77 01/22/25 11:50 Pulse Ox 90 01/22/25 11:50 O2 Del Method Room Air 01/22/25 11:50 01/21/25 01/22/25 01/22/25 22:59 06:59 14:59 Intake Total 100 / 100 480 / 480 Output Total 750 / 750 Balance 100 / 100 -750 / -650 480 / 480 Weight last 48 hrs Weight 124 lb 14.4 oz Weight 125 lb 9.6 oz Weight 132 lb 12.8 oz Weight 124 lb Physical Exam Narrative: Alert and oriented x 3 Head is normocephalic atraumatic Respirations are intact No evidence of any rashes or infection Patient sitting in bed comfortable family is at the bedside. Urinary Catheter Management: Jaramillo: Cath Placed During This Visit: yes Reason for Continuing Indwelling Catheter: Perioperative Use in Selected Surgeries Urinary Catheter Date of Insertion: 01/21/25 Urinary Catheter Time of Insertion: 19:48 Data 01/22/25 03:07 01/22/25 03:07 A&P Assessment and plan 1. Closed fracture of neck of right femur, initial encounter: Will plan on hip hemiarthroplasty in the morning tomorrow. PDMP PDMP Reviewed: Not Reviewed Coding Level of Care Code Acute Code for Chg Fwd Diagnoses Closed fracture of neck of right femur, initial encounter S72.001A Encounter type: initial encounter
[2025-01-22 16:02] VITALS: BP 129/72; PULSE 70; RESP 16; TEMP 36.8; O2SAT 96
[2025-01-22] MEDS: heparin 5,000 unit/mL INJ 1 mL 5000 UNIT SUBCUT (19:03)
[2025-01-22 19:31] VITALS: BP 143/72; PULSE 70; RESP 105; TEMP 36.8; O2SAT 96
[2025-01-23] VITALS (17 sets, daily range): BP systolic 131–205; BP diastolic 45–91; PULSE 60–85; RESP 14–22; TEMP 35.9–37; O2SAT 95–100
[2025-01-23 05:17] LABS: Hematocrit 35.7 % (36-47); Hemoglobin 11.60 g/dL (11.27-16.99); Mean Corpuscular HGB Conc 32.5 g/dL (30-55); Mean Corpuscular Hemoglobin 31.0 pg (27-33); Mean Corpuscular Volume 95.5 fl (85-98); Nucleated Red Blood Cells % 0 %; Platelet Count 225 10^3/cmm (157-399); Red Blood Count 3.74 10^6/uL (3.85-5.65); White Blood Count 6.70 10^3/uL (3.29-11.43)
[2025-01-23 05:43] LABS: Alanine Aminotransferase 21 U/L (0-33); Albumin Level 3.4 g/dL (3.5-5.2); Alkaline Phosphatase 72 U/L (35-105); Anion Gap 11.7 (5-19); Blood Urea Nitrogen 13 mg/dL (8-23); Calcium 9.1 mg/dL (8.5-10.5); Carbon Dioxide 26 mmol/L (22-29); Chloride 108 mmol/L (98-107); Creatinine Clr Calc Pharmacy 55.8654; Globulin 2.6 g/dL (1.3-4.6); Glucose 97 mg/dL (65-115); Magnesium 2.0 mg/dL (1.7-2.3); Osmolality Calculated 294 mOsm/kg (285-295); Potassium 3.7 mmol/L (3.5-5.1); Sodium 142 mmol/L (136-145); Total Protein 6.0 g/dL (6.6-8.7)
[2025-01-23 05:51] LABS: Aspartate Amino Transferase 13 U/L (0-32)
--- NOTE | 2025-01-23 10:36 | W.PM.OPSUD ---
Surgery/Procedure H&P Update DATE OF PROCEDURE: January 23, 2025 DATE H&P PERFORMED: 01/22/25 H&P UPDATE INFORMATION: I have reviewed H&P completed within last 30 days, I have examined patient prior to procedure and No changes to prior documentation PLANNED PROCEDURE: Operation Date: 01/23/25 11:40 Proposed Procedures p Hemiarthroplasty Hip(Right) - Devaughn Bowie DO
--- NOTE | 2025-01-23 10:54 | ECG_ITS ---
[facility]: [facility] Pat Name: Elaina Michaels Department: Room: 257 Gender: Female Steward/Stewardess Second: : 1950 Requested By: Damian Carney Order Number: [id number] Reading MD: MATHEW SPARKS Measurements Intervals [place] Rate: 62 P: 64 MO: 199 QRS: 40 QRSD: 95 T: 38 QT: 415 QTc: 424 Interpretive Statements SINUS RHYTHM WITH SINUS ARRHYTHMIA Compared to ECG 03/06/2018 19:43:17 T-wave abnormality no longer present Electronically Signed On 01-24-2025 20:11:50 CDT by MATHEW SPARKS [email or web address]
--- NOTE | 2025-01-23 10:54 | ANES.PREANE2 ---
Pre-Anesthetic Assessment Height/Weight: Height 5 ft 6 in Weight 124 lb 14 oz Temp Pulse Resp BP Pulse Ox O2 Del Method 97.6 F 69 17 139/81 95 Room Air 01/23/25 10:22 01/23/25 10:22 01/23/25 10:22 01/23/25 10:22 01/23/25 10:22 01/23/25 10:22 Preop Diagnosis: Hip fracture Operation Date: 01/23/25 11:40 Proposed Procedures p Hemiarthroplasty Hip(Right) - Devaughn Bowie, DO Was Beta Rai taken within 24 hours: N/A Was Clonidine taken within 24 hours: N/A Social No alcohol and No tobacco Exam alert, oriented x 3, clear to auscultation bilaterally and regular rate & rhythm Airway Submandibular: within normal limits Cervical ROM: within normal limits Mallampati: Class III Dentition: full Anesthetic Plan ASA status: 3 Anesthesia: General Other: No prior issues with anesthesia NPO since yesterday evening History of epilepsy, on chronic Keppra. States that she does not know when her last seizure was Denies any pulmonary or cardiac issues Will obtain EKG prior History of GERD, on Protonix Labs reviewed acceptable for procedure Patient is slow to respond but ANO x 3 Plan for general anesthesia Medications/Allergies Home Medications ?Medication ?Instructions ?Recorded ?Confirmed ?Last Taken ?Type pantoprazole 40 mg tablet,delayed 40 mg PO DAILY 08/01/19 01/21/25 01/21/25 History release (Protonix) bisacodyl 10 mg rectal suppository 10 mg AK DAILY PRN Constipation 01/27/23 01/21/25 Unknown History aripiprazole 5 mg tablet (Abilify) 5 mg PO DAILY #90 tabs 04/05/24 01/21/25 01/21/25 Rx levetiracetam 1,000 mg tablet 1,000 mg PO BID #180 tabs 10/12/24 01/21/25 01/21/25 Rx (Keppra) lacosamide 200 mg tablet 200 mg PO BID 90 days #180 tabs 12/26/24 01/21/25 01/21/25 Rx Lactobacillus rhamnosus GG 10 1 cap PO DAILY PRN while on abx 01/21/25 01/21/25 Unknown History billion cell capsule (Culturelle) acetaminophen 325 mg tablet 650 mg PO QID PRN pain/fever 01/21/25 01/21/25 Unknown History docusate sodium 100 mg capsule 100 mg PO BEDTIME 01/21/25 01/21/25 01/20/25 History (Colace) donepezil 10 mg tablet 10 mg PO DAILY 01/21/25 01/21/25 01/21/25 History magnesium hydroxide 400 mg/5 mL 30 ml PO DAILY PRN Constipation 01/21/25 01/21/25 Unknown History oral suspension (Milk of Magnesia) multivitamin 1 tab PO QAM 01/21/25 01/21/25 01/21/25 History ondansetron HCl 4 mg tablet 4 mg PO Q4H PRN Nausea And Vomiting 01/21/25 01/21/25 Unknown History paroxetine HCl 20 mg tablet 20 mg PO DAILY 01/21/25 01/21/25 01/21/25 History sodium phosphates 19 gram-7 118 ml AK DAILY PRN Constipation 01/21/25 01/21/25 Unknown History gram/118 mL enema (Fleet Enema) Allergies Allergy/AdvReac Type Severity Reaction Status Date / Time ibuprofen (From Motrin) Allergy ALGY-Rash Verified 08/18/24 15:25 Current Medications Generic Name Dose Route Start Last Admin Trade Name Freq PRN Reason Stop Dose Admin Aripiprazole 5 mg 01/22/25 09:00 01/23/25 08:43 Aripiprazole 10 Mg Tablet PO 5 mg On Hold: 01/23/25 10:19 DAILY AREN Administration Comment: Order held by Process Transfer Docusate Sodium 100 mg 01/21/25 18:21 01/23/25 08:43 Docusate Sodium 100 Mg Capsule PO 100 mg On Hold: 01/23/25 10:19 BID AREN Administration Comment: Order held by Process Transfer Donepezil HCl 10 mg 01/22/25 09:00 01/23/25 08:43 Donepezil 5 Mg Tablet PO 10 mg On Hold: 01/23/25 10:19 DAILY AREN Administration Comment: Order held by Process Transfer Heparin Sodium (Porcine) 5,000 unit 01/21/25 18:21 01/22/25 19:55 Heparin 5,000 Unit/Ml Inj 1 Ml SUBCUT Not Given On Hold: 01/23/25 10:19 Q12H AREN Comment: Order held by Process Transfer Sodium Chloride 1,000 mls @ 50 mls/hr 01/21/25 18:21 01/22/25 16:43 Sodium Chloride 0.9% IV 50 mls/hr On Hold: 01/23/25 10:19 .Q20H AREN Administration Comment: Order held by Process Transfer Lacosamide 200 mg 01/21/25 18:21 01/23/25 08:43 Lacosamide 50 Mg Tablet PO 200 mg On Hold: 01/23/25 10:19 BID AREN Administration Comment: Order held by Process Transfer Levetiracetam 1,000 mg 01/21/25 18:21 01/23/25 08:43 Levetiracetam 500 Mg Tablet PO 1,000 mg On Hold: 01/23/25 10:19 BID AREN Administration Comment: Order held by Process Transfer Pantoprazole Sodium 40 mg 01/22/25 09:00 01/23/25 08:[address] 40 Mg Tablet PO 40 mg On Hold: 01/23/25 10:19 DAILY AREN Administration Comment: Order held by Process Transfer Paroxetine HCl 20 mg 01/22/25 09:00 01/23/25 08:43 Paroxetine 20 Mg Tablet PO 20 mg On Hold: 01/23/25 10:19 DAILY AREN Administration Comment: Order held by Process Transfer [facility] Anesthesia Medical History (Updated 01/22/25 @ 13:22 by Devaughn Bowie DO) Secondarily generalized 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, major Gastrostomy tube skin breakdown Bipolar disorder History of hip fracture Hyperlipidemia Surgical History (Updated 01/21/25 @ 16:50 by Surjit Anderson MD) History of colostomy reversal 2019 Family History Denies family history of Diabetes CAD (coronary artery disease) Cancer Hypertension Stroke Social History Smoking and tobacco/nicotine status: never used tobacco/nicotine Alcohol intake: never Substance/Drug Use: never Data Anesthesia 01/23/25 05:08 01/23/25 05:08 Short CBC 01/21/25 01/22/25 01/23/25 Range/Units 12:48 03:07 05:08 WBC 7.98 6.61 6.70 (3.29-11.43) 10^3/uL Hgb 12.60 11.00 L 11.60 (11.27-16.99) g/dL Hct 38.9 34.2 L 35.7 L (36-47) % MCV 94.9 94.0 95.5 (85-98) fl Plt Count 208 199 225 (157-399) 10^3/cmm Neut % (Auto) 75.7 59.0 55.3 % Neut # (Auto) 6.04 3.90 3.70 (1.8-7.7) 10^3/uL BMP 01/21/25 01/22/25 01/23/25 12:48 03:07 05:08 Sodium 141 143 142 Potassium 4.3 3.7 3.7 Chloride 102 106 108 H Carbon Dioxide 30 H 28 26 BUN 10 13 13 Creatinine 0.6 0.6 0.5 Glucose 121 H 99 97 Calcium 9.6 9.1 9.1 Liver Function 01/22/25 01/23/25 Range/Units 03:07 05:08 Total Bilirubin 0.4 0.3 (0.15-1.2) mg/dL AST 17 13 (0-32) U/L ALT 29 21 (0-33) U/L Alkaline Phosphatase 80 72 (35-105) U/L Albumin 3.6 3.4 L (3.5-5.2) g/dL Urine 01/21/25 Range/Units 13:36 Urine Color Yellow (Yellow) Urine Appearance Clear (CLEAR) Urine pH 6.5 (5-7) Ur Specific [place] 1.007 (1.005-1.030) Urine Protein Negative (Negative) Urine Glucose (UA) Negative (Normal) Urine Ketones Negative (Negative) Urine Nitrate Negative (Negative) Urine Bilirubin Negative (Negative) Ur Leukocyte Esterase Negative (Negative) Urine RBC 0-2 (0-2) /hpf Urine WBC 0-5 (0-5) /hpf
[2025-01-23] MEDS: ceFAZolin 2,000 mg SDV 2000 MG IVP ×2 (11:14→18:11)
--- NOTE | 2025-01-23 12:15 | P.OP_ITS ---
Operative Report Date of procedure: January 23, 2025 Pre-op diagnosis: Right femoral neck fracture Post-op diagnosis: same Procedure done: Right hip hemiarthroplasty Surgeon: Devaughn Bowie DO Estimated blood loss (mL): 25 Procedure: Right hip hemiarthroplasty Patient is brought to the operative suite after undergoing anesthesia was placed in the lateral decubitus position with the right side up. All areas of impingement were well-padded. Patient's prepped and draped normal sterile f ashion. Skin incisions made over the right lateral hip. Modified Cooper approach was used IT band was split abductor and the capsule were taken anteriorly. Femoral neck cut was made. This is made approximately 1 fingerbreadth above the lesser trochanter. The femoral head was removed measured to be 45. 5 size 45 head was then used. Next 10 was brought to the femur. The gill box tender was used followed by the canal finder followed by the lateralizer. The canal was broached to 3. Size Aravind 3 stem was inserted with a 45 head and -4 neck length. [place] to be stable in all positions. The c apsule and abductor were repaired back to the femur. The wounds were irrigated. Wounds then closed in layered fashion with 0 Vicryl 2-0 Vicryl and Monocryl suture. Sterile dressings were applied and patient is transferred to the PACU in stable condition.
--- NOTE | 2025-01-23 12:18 | XRR_ITS ---
PROCEDURE INFORMATION: Exam: XR Right Hip Exam date and time: 01/23/2025 12:41 PM Age: 74 years old Clinical indication: Device placement; Other: Hip; Prior surgery; Surgery date: Post-operative (0-2 days); Additional info: Postop TECHNIQUE: Imaging protocol: Radiologic exam of the right hip. Views: 1 view hip with pelvis when performed. COMPARISON: CR (PELVIS, ) 01/21/2025 12:54 PM FINDINGS: Bones/joints: Postop changes of right hip replacement are present. No new fracture is identified. Soft tissues: Subcutaneous intra-articular air is present. XR/XR hip RT 1V wo/w pel [id number] IMPRESSION: Immediate changes status post right hip replacement.
[2025-01-23] MEDS: hyDRALAzine 20 mg/mL INJ 1 mL 5 MG IVP (12:40)
--- NOTE | 2025-01-23 13:06 | ANE.PACU2 ---
Inpatient post-anesthesia follow up: Airway intact: Yes Vital signs: Temperature 97.5 F Pulse Rate 68 Respiratory Rate 17 Blood Pressure 168/69 Pulse Oximetry 96 Oxygen Delivery Me thod Room Air Oxygen Flow Rate 8 Fraction of Inspir ed Oxygen Hydration adequate: Yes Nausea and vomiting: No Pain level: 1 Mental status: Baseline
--- NOTE | 2025-01-23 13:18 | PC.NURSE ---
1313 - accepted into room 257 with Nirav, [employer] at side - pt in no distress upon this nurse exiting care - BP 175/63 - pulse 62 - 98% temp 96.7
[2025-01-23] MEDS: HYDROcodone-acetaminophen 5-325 mg Tablet 1 TAB PO (14:54)
--- NOTE | 2025-01-23 16:05 | P.PN_ITS ---
Vitals/I&O/Wt Last Vital Signs Temp 97.4 F L 01/23/25 15:15 Pulse 69 01/23/25 15:15 Resp 14 01/23/25 15:15 BP 169/66 01/23/25 15:15 Pulse Ox 96 01/23/25 15:15 O2 Del Method Room Air 01/23/25 15:15 O2 Flow Rate 8 01/23/25 12:44 01/23/25 01/23/25 01/23/25 06:59 14:59 22:59 Intake Total 480 / 2440 1148.5 / 1148.5 Output Total 1000 / 1900 1205 / 1205 Balance -520 / 540 -56.5 / -56.5 Weight last 48 hrs Weight 56.642 kg Weight 56.654 kg Weight 56.971 kg Weight 60.237 kg Physical Exam 2 Const: COMMON NORMALS: no acute distress ORIENTATION/CONSCIOUSNESS: Yes awake and Yes oriented to person; not oriented to place and not oriented to time Resp: COMMON NORMALS: normal respiratory effort, No retractions, No use of accessory muscles and clear to auscultation bilaterally AUSCULTATION: clear to auscultation bilaterally Cardio: COMMON NORMALS: regular rate, regular rhythm, S1 normal heart sound present and S2 normal heart sound present RATE: regular rate RHYTHM: r egular rhythm HEART SOUNDS: S1 normal heart sound present and S2 normal heart sound present GI: COMMON NORMALS: Normal to inspection, nondistended, normoactive bowel sounds present and non-tender Extremity: COMMON NORMALS: no pedal edema Neuro: SENSORIUM/ORIENTATION: Yes oriented to person, No oriented to place and No oriented to time Psych: COMMON NORMALS: mental status grossly normal Urinary Catheter Management: Jaramillo: Cath Placed During This Visit: yes Reason for Continuing Indwelling Catheter: Other Urinary Catheter Date of Insertion: 01/21/25 Urinary Catheter Time of Insertion: 19:48 Data 01/23/25 05:08 01/23/25 05:08 A&P Assessment and plan 1. Closed fracture of neck of right femur: Plan no surgical intervention today Subcut heparin 5000 subcut every 12 hours Hydrocodone for pain 2. Primary generalized epilepsy, major: 3. Bipolar disorder: Plan: Continue home medications including aripiprazole, donepezil, Keppra, paroxetine as before. CODE STATUS: Full code Regular diet, n.p.o. after midnight Protonix for PUD prophylaxis Heparin for DVT prophylaxis Plan for the day: Surgical intervention PDMP PDMP Reviewed: Not Reviewed Attestations 2 Medical Necessity Statement*: Patient requires hospitalization for right hip fracture requiring surgical intervention Diagnoses Closed fracture of neck of right femur S72.001A Encounter type: initial encounter Primary generalized epilepsy, major G40.309 Bipolar disorder F31.9 Active/Remission status: in partial remission
[2025-01-23] MEDS: heparin 5,000 unit/mL INJ 1 mL 5000 UNIT SUBCUT (17:08)
[2025-01-24] VITALS (8 sets, daily range): BP systolic 115–152; BP diastolic 61–68; PULSE 65–81; RESP 14–17; TEMP 36.3–37.2; O2SAT 92–97
[2025-01-24] MEDS: ceFAZolin 2,000 mg SDV 2000 MG IVP ×2 (02:09→11:34)
[2025-01-24 04:53] LABS: Hematocrit 34.6 % (36-47); Hemoglobin 11.20 g/dL (11.27-16.99); Mean Corpuscular HGB Conc 32.4 g/dL (30-55); Mean Corpuscular Hemoglobin 30.4 pg (27-33); Mean Corpuscular Volume 93.8 fl (85-98); Nucleated Red Blood Cells % 0 %; Platelet Count 250 10^3/cmm (157-399); Red Blood Count 3.69 10^6/uL (3.85-5.65); White Blood Count 10.98 10^3/uL (3.29-11.43)
[2025-01-24 05:12] LABS: Alanine Aminotransferase 15 U/L (0-33); Albumin Level 3.4 g/dL (3.5-5.2); Alkaline Phosphatase 74 U/L (35-105); Anion Gap 13.4 (5-19); Aspartate Amino Transferase 24 U/L (0-32); Blood Urea Nitrogen 17 mg/dL (8-23); Calcium 8.8 mg/dL (8.5-10.5); Carbon Dioxide 24 mmol/L (22-29); Chloride 103 mmol/L (98-107); Creatinine Clr Calc Pharmacy 55.8608; Globulin 2.7 g/dL (1.3-4.6); Glucose 139 mg/dL (65-115); Magnesium 1.8 mg/dL (1.7-2.3); Osmolality Calculated 288 mOsm/kg (285-295); Potassium 3.4 mmol/L (3.5-5.1); Sodium 137 mmol/L (136-145); Total Protein 6.1 g/dL (6.6-8.7)
[2025-01-24] MEDS: heparin 5,000 unit/mL INJ 1 mL 5000 UNIT SUBCUT (05:13)
[2025-01-24] MEDS: HYDROcodone-acetaminophen 5-325 mg Tablet 1 TAB PO ×2 (07:48→13:36)
[2025-01-24 09:53] LABS: SARS Covid-2 Antigen Negative (Negative)
--- NOTE | 2025-01-24 10:59 | PM.DCS ---
Discharge Providers Date of Admission: 01/21/25 13:46 Date of Discharge: January 24, 2025 Attending Provider at Admission: Surjit Anderson MD Attending Provider at Discharge: Carlos Garcia MD Primary Care Provider: Duong Ríos Diagnoses at Discharge Discharge Diagnosis 1. Closed fracture of neck of right femur, initial encounter: 2. Primary generalized epilepsy, major: 3. Bipolar disorder: Reason for Visit Reason for Visit: right hip pain s/p fall Hospital Course Hospital Course Elaina Michaels is a 74 year old female resident of assisted living, bipolar disorder, generalized epilepsy Alzheimer's disease presents to the ER today because of hip pain. Patient states she sustained a fall while she was trying to wear her nightgown 2 nights ago. Today morning she started having pain in her hip and hence she was sent to the ER. Patient denies pain anywhere else. In the ER she was found to have right femoral neck fracture. Orthopedics was consulted. Hospitalist was requested for further evaluation and management. Patient was admitted to [facility] for right hip fracture, status post right hip hemiarthroplasty, she tolerated procedure well, will be discharged on aspirin for DVT prophylaxis, hydrocodone to be used as needed for pain, [facility] jail [facility] Physical Exam Const: COMMON NORMALS: no acute distress GENERAL APPEARANCE: cooperative ORIENTATION/CONSCIOUSNESS: Yes awake, Yes oriented to person and Yes oriented to place; not oriented to time OTHER: Seen sitting up in a chair, playing a word scramble Resp: COMMON NORMALS: normal respiratory effort, No retractions, No use of accessory muscles and clear to auscultation bilaterally AUSCULTATION: clear to auscultation bilaterally Cardio: COMMON NORMALS: regular rate, regular rhythm, S1 normal heart sound present and S2 normal heart sound present RATE: regular rate RHYTHM: regular rhythm HEART SOUNDS: S1 normal heart sound present and S2 normal heart sound present GI: COMMON NORMALS: Normal to inspection, nondistended, normoactive bowel sounds present and non-tender Extremity: COMMON NORMALS: no pedal edema Neuro: SENSORIUM/ORIENTATION: Yes oriented to person, Yes oriented to place and No oriented to time Psych: COMMON NORMALS: mental status grossly normal Urinary Catheter Management: Jaramillo: Cath Placed During This Visit: yes, but has since been removed by the nurse Reason for Continuing Indwelling Catheter: Perioperative Use in Selected Surgeries Urinary Catheter Date of Insertion: 01/21/25 Urinary Catheter Time of Insertion: 19:48 Date Urinary Catheter Removed: 01/24/25 Time Urinary Catheter Discontinued: 06:21 Discharge Data Studies Completed and Pending Completed Studies During Hospitalization Category Date Time Status CT head wo con* [id number] Stat Cat Scan 01/21/25 12:29 Completed XR chest 1V portable [id number] Stat Exams 01/21/25 13:11 Completed XR hip RT 1V wo/w pel [id number] Routine Exams 01/23/25 12:18 Completed XR hip RT 2-3V wo/w pel* [id number] Stat Exams 01/21/25 12:29 Completed Radiology Impressions Head CT 01/21/25 12:29 IMPRESSION: 1. No acute intracranial finding. 2. Cortical atrophy is present. 3. Additional findings as described. Hip/Pelvis X-Ray 01/21/25 12:29 IMPRESSION: Right femoral neck fracture. Chest X-Ray 01/21/25 13:11 IMPRESSION: No acute pulmonary finding. Hip X-Ray 01/23/25 12:18 IMPRESSION: Immediate changes status post right hip replacement. Laboratory Results WBC 10.98 10^3/uL (3.29-11.43) 01/24/25 04:40 RBC 3.69 10^6/uL (3.85-5.65) L 01/24/25 04:40 Hgb 11.20 g/dL (11.27-16.99) L 01/24/25 04:40 Hct 34.6 % (36-47) L 01/24/25 04:40 MCV 93.8 fl (85-98) 01/24/25 04:40 MCH 30.4 pg (27-33) 01/24/25 04:40 MCHC 32.4 g/dL (30-55) 01/24/25 04:40 RDW 13.0 % (12.1-15.1) 01/24/25 04:40 Plt Count 250 10^3/cmm (157-399) 01/24/25 04:40 MPV 9.6 fL (7.4-10.4) 01/24/25 04:40 Neut % (Auto) 77.7 % 01/24/25 04:40 Lymph % (Auto) 9.6 % 01/24/25 04:40 [place] % (Auto) 11.3 % 01/24/25 04:40 Eos % (Auto) 0.5 % 01/24/25 04:40 Baso % (Auto) 0.5 % 01/24/25 04:40 Neut # (Auto) 8.54 10^3/uL (1.8-7.7) H 01/24/25 04:40 Lymph # (Auto) 1.1 10^3/uL (0.8-4.8) 01/24/25 04:40 [place] # (Auto) 1.2 10^3/uL (0.2-0.9) H 01/24/25 04:40 Eos # (Auto) 0.1 10^3/uL (0.0-0.8) 01/24/25 04:40 Baso # (Auto) 0.1 10^3/uL (0.0-0.1) 01/24/25 04:40 Nucleated RBC % (auto) 0 % 01/24/25 04:40 Nucleated RBCs # 0.0 /100WBC 01/24/25 04:40 Sodium 137 mmol/L (136-145) 01/24/25 04:40 Potassium 3.4 mmol/L (3.5-5.1) L 01/24/25 04:40 Chloride 103 mmol/L (98-107) 01/24/25 04:40 Carbon Dioxide 24 mmol/L (22-29) 01/24/25 04:40 Anion Gap 13.4 (5-19) 01/24/25 04:40 BUN 17 mg/dL (8-23) 01/24/25 04:40 Creatinine 0.6 mg/dL (0.5-0.9) 01/24/25 04:40 GFR Calculation Not Reportable 01/24/25 04:40 Glucose 139 mg/dL (65-115) H 01/24/25 04:40 Estimat Average Glucose 103 01/21/25 12:48 Hemoglobin A1c 5.2 % (4.0-6.0) 01/21/25 12:48 Calculated Osmolality 288 mOsm/kg (285-295) 01/24/25 04:40 Lactic Acid 1.7 mmol/L (0.5-2.2) 01/21/25 12:48 Calcium 8.8 mg/dL (8.5-10.5) 01/24/25 04:40 Phosphorus 3.1 mg/dL (2.5-4.5) 01/24/25 04:40 Magnesium 1.8 mg/dL (1.7-2.3) 01/24/25 04:40 Iron 20 ug/dL (37-145) L 01/21/25 12:48 TIBC 268 mcg/dl 01/21/25 12:48 % Saturation 7.4 % (20-50) L 01/21/25 12:48 Unsat Iron Binding 248 ug/dL (112-347) 01/21/25 12:48 Total Bilirubin 0.3 mg/dL (0.15-1.2) 01/24/25 04:40 AST 24 U/L (0-32) 01/24/25 04:40 ALT 15 U/L (0-33) 01/24/25 04:40 Alkaline Phosphatase 74 U/L (35-105) 01/24/25 04:40 Total Protein 6.1 g/dL (6.6-8.7) L 01/24/25 04:40 Albumin 3.4 g/dL (3.5-5.2) L 01/24/25 04:40 Globulin 2.7 g/dL (1.3-4.6) 01/24/25 04:40 Triglycerides 61 mg/dL (0-150) 01/22/25 03:07 Cholesterol 189 mg/dL (0-200) 01/22/25 03:07 LDL Cholesterol, Calc 91 mg/dL (50-129) 01/22/25 03:07 HDL Cholesterol 86 mg/dL (60-100) 01/22/25 03:07 LDL/HDL Ratio 1.06 RATIO (0.00-3.22) 01/22/25 03:07 Cholesterol/HDL Ratio 2.20 mg/dL (0.0-4.40) 01/22/25 03:07 Vitamin B12 806 pg/mL (232-1245) 01/21/25 12:48 Folate 17.5 ng/mL (4.8-37.3) 01/22/25 03:07 Procalcitonin 0.07 ng/mL (0-0.5) 01/22/25 03:07 TSH 1.90 uIU/mL (0.27-4.20) 01/21/25 12:48 Urine Color Yellow (Yellow) 01/21/25 13:36 Urine Appearance Clear (CLEAR) 01/21/25 13:36 Urine pH 6.5 (5-7) 01/21/25 13:36 Ur Specific [place] 1.007 (1.005-1.030) 01/21/25 13:36 Urine Protein Negative (Negative) 01/21/25 13:36 Urine Glucose (UA) Negative (Normal) 01/21/25 13:36 Urine Ketones Negative (Negative) 01/21/25 13:36 Urine Blood Negative (Negative) 01/21/25 13:36 Urine Nitrate Negative (Negative) 01/21/25 13:36 Urine Bilirubin Negative (Negative) 01/21/25 13:36 Urine Urobilinogen 1.0 mg/dL (Negative) 01/21/25 13:36 Ur Leukocyte Esterase Negative (Negative) 01/21/25 13:36 Urine RBC 0-2 /hpf (0-2) 01/21/25 13:36 Urine WBC 0-5 /hpf (0-5) 01/21/25 13:36 Ur Squamous Epith Cells 0-5 /hpf (0-5) 01/21/25 13:36 Amorphous Sediment Not Reportable 01/21/25 13:36 Urine Bacteria None seen /hpf (NONE) 01/21/25 13:36 Hyaline Casts 0.40 /lpf 01/21/25 13:36 SARS-CoV-2 Ag (Rapid) Negative (Negative) 01/24/25 09:11 Vitals Last Vital Signs Temp 98.7 F 01/24/25 07:44 Pulse 81 01/24/25 07:44 Resp 16 01/24/25 07:44 BP 152/64 01/24/25 07:44 Pulse Ox 92 01/24/25 07:44 O2 Del Method Room Air 01/24/25 07:44 O2 Flow Rate 8 01/23/25 12:44 Discharge Plan Discharge Patient Disposition: Home Condition: Stable Prescriptions: New aspirin 81 mg capsule 81 mg PO DAILY 30 Days Qty: 30 0RF hydrocodone-acetaminophen 5-325 mg tablet 1 tab PO Q6H PRN (Reason: pain) 5 Days Qty: 20 0RF Continued pantoprazole [Protonix] 40 mg tablet,delayed release (DR/EC) 40 mg PO DAILY bisacodyl 10 mg suppository 10 mg MI DAILY PRN (Reason: Constipation) aripiprazole [Abilify] 5 mg tablet 5 mg PO DAILY Qty: 90 3RF levetiracetam [Keppra] 1,000 mg tablet 1,000 mg PO BID Qty: 180 3RF lacosamide 200 mg tablet 200 mg PO BID 90 Days Qty: 180 2RF multivitamin Tablet 1 tab PO QAM acetaminophen 325 mg Tablet 650 mg PO QID PRN (Reason: pain/fever) ondansetron HCl 4 mg Tablet 4 mg PO Q4H PRN (Reason: Nausea And Vomiting) magnesium hydroxide [Milk of Magnesia] 400 mg/5 mL Suspension 30 ml PO DAILY PRN (Reason: Constipation) paroxetine HCl 20 mg tablet 20 mg PO DAILY Fleet Enema 19-7 gram/118 mL Enema 118 ml MI DAILY PRN (Reason: Constipation) docusate sodium [Colace] 100 mg Capsule 100 mg PO BEDTIME Culturelle 10 billion cell Capsule 1 cap PO DAILY PRN (Reason: while on abx) donepezil 10 mg tablet 10 mg PO DAILY Advertising Display Rotator OK for DC: Orthopedics Discharge Order = DC NOW: Discharge Order (Routine); Ordered 01/24/25 Ordered By: Carlos Garcia Referrals: Devaughn Bowie DO [Physician, Orthopedics] - 02/07/25 8:45 am Duong Ríos MD [Primary Care Provider, Pathology] Discharge Diet: Advance as tolerated Discharge Activity: Resume usual activity Patient Instructions: Hydrocodone/Acetaminophen (By mouth), Aspirin (By mouth), Acute Wound Care (DC), Opioid Safety, Patient Portal & Rita Instructions Activity Restrictions/Additional Instructions: It has been a pleasure caring for you in the emergency department. Please ensure that you follow-up with your primary care physician for review of all data obtained during this encounter including any incidental findings and laboratory values. Keep in mind that if your condition worsens in any way, I strongly recommend that you return to the emergency department for repeat evaluation immediately. Discharge Attestations Time Spent in Discharge Care*: greater than 30 min Quality Metrics Clinical Quality Measures [ No reported AMI, CVA or VTE this stay] Coding Level of Care Code 17165 Total time (in minutes) for Discharge: 45 Diagnoses Closed fracture of neck of right femur, initial encounter S72.001A Encounter type: initial encounter Primary generalized epilepsy, major G40.309 Bipolar disorder F31.9 Active/Remission status: in partial remission
--- NOTE | 2025-01-24 12:19 | P.PN_ITS ---
Subjective 2 Subjective: Patient is doing well sitting up in chair. Vitals/I&O/Wt Last Vital Signs Temp 98.9 F 01/24/25 11:37 Pulse 80 01/24/25 11:37 Resp 14 01/24/25 11:37 BP 115/67 01/24/25 11:37 Pulse Ox 97 01/24/25 11:37 O2 Del Method Room Air 01/24/25 11:37 O2 Flow Rate 8 01/23/25 12:44 01/23/25 01/24/25 01/24/25 22:59 06:59 14:59 Intake Total 720 / 1868.5 120 / 1988.5 240 / 240 Output Total 1300 / 2505 100 / 2605 Balance -580 / -636.5 20 / -616.5 240 / 240 Weight last 48 hrs Weight 121 lb 1 oz Weight 124 lb 14 oz Physical Exam 2 Narrative: Incision clean dry and intact Urinary Catheter Management: Jaramillo: Cath Placed During This Visit: yes, but has since been removed by the nurse Reason for Continuing Indwelling Catheter: Perioperative Use in Selected Surgeries Urinary Catheter Date of Insertion: 01/21/25 Urinary Catheter Time of Insertion: 19:48 Date Urinary Catheter Removed: 01/24/25 Time Urinary Catheter Discontinued: 06:21 Data 01/24/25 04:40 01/24/25 04:40 A&P Assessment and plan 1. Closed fracture of neck of right femur, initial encounter: Postop day #1 hip hemiarthroplasty Discharge planning PDMP PDMP Reviewed: Not Reviewed Attestations 2 Medical Necessity Statement*: Per primary service Coding Level of Care Code Acute Code for Chg Fwd Diagnoses Closed fracture of neck of right femur, initial encounter S72.001A Encounter type: initial encounter
--- NOTE | 2025-01-24 12:22 | PC.NURSE ---
This nurse called report to NED Magallanes at [facility] at 1220. They will be here to pick pt up around 1330.
== END 2025-01-24 13:42 | disposition skilled nursing facility (03) | DRG 522 ==
LOC: ER 16:59 → ER IP 18:08 → MEDSURG 18:54
PROVIDERS: Orthopaedic Surgery; Admitting Provider Student in an Organized Health Care Education/Training Program; Emergency Provider General Practice; PCP Pathology Anatomic Pathology & Clinical Pathology; Visit Provider Family Medicine
PROC: 0SRR0JZ Replacement of Right Hip Joint, Femoral Surface with Synthetic Substitute, Open Approach (ICD-10-PCS; principal; 2025-01-23 11:10)
DX: S72.001A Fracture of unspecified part of neck of right femur, initial encounter for closed fracture (principal); W01.0XXA Fall on same level from slipping, tripping and stumbling without subsequent striking against object, initial encounter; G40.409 Other generalized epilepsy and epileptic syndromes, not intractable, without status epilepticus; F31.9 Bipolar disorder, unspecified; G30.9 Alzheimer's disease, unspecified; F02.80 Dementia in other diseases classified elsewhere, unspecified severity, without behavioral disturbance, psychotic disturbance, mood disturbance, and anxiety; Z79.82 Long term (current) use of aspirin; E78.5 Hyperlipidemia, unspecified
CPT/HCPCS: 36415; 51702; 70450; 71045; 73501; 73502; 80048; 80053; 80061; 81001; 82607; 82746; 83036; 83540; 83550; 83605; 83735; 84100; 84145; 84443; 85025; 87426; 93005; 94664; 96372; 96374; 97161; 97165; 99285; C1776; J0360; J0690; J1644; J2704; J3010; J3373; J3490; J7030; J9999

== ENCOUNTER → 2025-02-07 15:36 | Outpatient (BNVA) | payer MEDICARE, BC, SELFPAY | PROVIDERS: PCP Pathology Anatomic Pathology & Clinical Pathology; Visit Provider Orthopaedic Surgery | DX: Z98.890 Other specified postprocedural states (principal) | CPT/HCPCS: 73502; 99024 ==

== ENCOUNTER → 2025-03-07 15:27 | Outpatient (BNVA) | payer MEDICARE, BC, SELFPAY | PROVIDERS: PCP Pathology Anatomic Pathology & Clinical Pathology; Visit Provider Orthopaedic Surgery | DX: Z98.890 Other specified postprocedural states (principal) | CPT/HCPCS: 73502; 99024 ==

== ENCOUNTER → 2025-04-18 12:55 | Outpatient (BNVA) | payer MEDICARE, BC, SELFPAY | PROVIDERS: PCP Pathology Anatomic Pathology & Clinical Pathology; Visit Provider Orthopaedic Surgery | DX: Z98.890 Other specified postprocedural states (principal) | CPT/HCPCS: 73502; 99024 ==